=== PATIENT | male | born 1965 | race Caucasian/White ===

== ENCOUNTER 2023-05-30 11:56 | Outpatient (AMB) | payer OTHER, SELFPAY ==
--- NOTE | 2023-05-30 12:00 | HO.NEPHOV ---
HPI HPI Comments History of Present Illness Details I had the privilege of seeing Austin in consultation for his CKD and hypertension . He has been on ACEI for his hypertension. He takes NSAID's as on a needed basis. He gets occasional gout. He is a diabetic over 10 years. His serum creatinine went up to 1.5 but has settled to 1.4. He is not known to have proteinuria. He had Ultrasound of the kidneys showed B/L hydronephrosis suggestive of bladder outlet obstruction. He is not known to have renal calculus. He is known to be diabetic neuropathy but denies retinopathy. He has no H/O CAD, CVA, CHF, MALLORY or PAD. He has no new bone pain, epistaxis, photosensitivity, skin rashes, hemoptysis, hematemesis, melena. He had been taking lisinopril for his blood pressure for a long time. He occasionally gets flank pain and intermittent incontinence. [facility] Medical History (Updated 05/30/23 @ 12:59 by Juan Flores MD) Steatosis of liver Hypercholesteremia Retention of urine Multiple renal cysts Benign prostatic hyperplasia Adenomatous polyp of colon Snoring Bilateral tinnitus Chronic kidney disease, stage 3a Polyarthropathy Type 2 diabetes mellitus Essential (primary) hypertension Obesity History of gout Hemorrhoids Surgical History History of orthopedic surgery Family History Father Abdominal aortic aneurysm Mother Malignant neoplastic disease Heart disease Disorder of thyroid gland Social History (Updated 05/30/23 @ 12:05 by Rosalind Aviles MA) Alcohol intake: current Comment: Occasionally Patient Tobacco Use Status: Former Tobacco user Vital Signs 05/30/23 12:01 Height 6 ft 2 in Weight 268 lb BMI 34.4 BP 140/100 H Blood Pressure Location Lt brachial Position Sitting Pulse 67 Pulse Source Pulse Oximeter Pulse Oximetry (%) 99 Oxygen Delivery Method Room Air Physical Exam Vital Signs: Last Vital Signs Pulse 67 05/30/23 12:01 BP 140/100 H 05/30/23 12:01 Pulse Ox 99 05/30/23 12:01 Oxygen Delivery Method Room Air 05/30/23 12:01 BMI result Body Mass Index 34.4 Const General: comfortable and no acute distress Orientation/consciousness: patient oriented x3 HEENT Head: Yes normocephalic Mouth: Normal oral and palatal mucosa present Eyes EOM: EOMs intact bilaterally Neck Neck: Yes supple Resp Auscultation: clear to auscultation bilaterally Cardio Jugular venous distension: no JVD Rate: regular rate GI Palpation (GI): Soft to palpation Auscultation: normal bowel sounds General: Yes no CVA tenderness Back/Spine/Pelvis Back: no CVA tenderness Skin General skin exam: no rashes or lesions noted Neuro General: patient oriented x3 and moves all extremities Extrem General: Yes no pedal edema Assessment & Plan Assessment & Plan (1) CKD (chronic kidney disease) stage 3, GFR 30-59 ml/min: Code(s): N18.30 - Chronic kidney disease, stage 3 unspecified Qualifiers: Chronic kidney disease stage 3 subtype: stage 3a (GFR 45-59) Qualified Code(s): N18.31 - Chronic kidney disease, stage 3a (2) Essential (primary) hypertension: Code(s): I10 - Essential (primary) hypertension (3) Bladder outlet obstruction: Code(s): N32.0 - Bladder-neck obstruction Plan Robe likely has CKD from multifactorial etiology. He has long standing HTN along with DM without proteinuria. His recent renal USS showed bladder outlet obstruction with B/L hydronephrosis. He is going to see Dr Becker. He has been having over flow incontinence. I started him on Tamsulosin 0.4 mg daily. He likely will need Urodynamics and may need TURP. I have asked him to avoid NSAID's. He will benefit from Allopurinol, given recurrent gout attacks. I have ordered serum uric acid in addition to blood work for follow up. He will need a follow up renal USS after next visit in 2 months. If his serum creatinine rises, I shall back off on ACEI. All questions answered. Follow up given Orders: Orders Electrolytes Today I10 - Essential (primary) hypertension, N18.30 - Chronic kidney disease, stage 3 unspecified Blood Urea Nitrogen Today I10 - Essential (primary) hypertension, N18.30 - Chronic kidney disease, stage 3 unspecified Creatinine Today I10 - Essential (primary) hypertension, N18.30 - Chronic kidney disease, stage 3 unspecified Uric Acid Today I10 - Essential (primary) hypertension, N18.30 - Chronic kidney disease, stage 3 unspecified, N32.0 - Bladder-neck obstruction Medications: New tamsulosin 0.4 mg PO BEDTIME 30 days 30 caps 3RF Coding Level of Care Code New Pt Level 4 (46301) Diagnoses Stage 3a chronic kidney disease N18.31 Chronic kidney disease stage 3 subtype: stage 3a (GFR 45-59) Essential (primary) hypertension I10 Bladder outlet obstruction N32.0 Results Reviewed Nephrology Results: No Data to Display
[2023-05-30 12:01] VITALS: BP 140/100; PULSE 67; O2SAT 99; BMI 34.4
== END 2023-05-30 12:39 | disposition home or self-care (01) ==
PROVIDERS: PCP Pediatrics; Visit Provider Internal Medicine Nephrology
DX: N18.31 Chronic kidney disease, stage 3a (principal); I10 Essential (primary) hypertension; N32.0 Bladder-neck obstruction
CPT/HCPCS: 99204

== ENCOUNTER → 2023-05-30 11:56 | Outpatient (BNVA) | payer OTHER, SELFPAY | PROVIDERS: PCP Pediatrics; Visit Provider Internal Medicine Nephrology ==

== ENCOUNTER 2023-07-24 09:18 | Outpatient (REF) | payer OTHER, SELFPAY ==
[2023-07-24 11:14] LABS: Anion Gap 11 (12-20); Blood Urea Nitrogen 22 mg/dL (9-16); Carbon Dioxide 26 mmol/L (22-29); Chloride 110 mmol/L (96-108); Estimated Glomerular Filt Rate 49; Potassium 4.8 mmol/L (3.3-5.1); Sodium 142 mmol/L (135-145); Uric Acid 9.5 mg/dL (3.4-7.0)
== END 2023-07-24 09:19 | disposition home or self-care (01) ==
LOC: HO.10HDL 09:18
PROVIDERS: Visit Provider Internal Medicine Nephrology
DX: I12.9 Hypertensive chronic kidney disease with stage 1 through stage 4 chronic kidney disease, or unspecified chronic kidney disease (principal); N18.30 Chronic kidney disease, stage 3 unspecified; N32.0 Bladder-neck obstruction
CPT/HCPCS: 36415; 80051; 82565; 84520; 84550

== ENCOUNTER 2023-08-01 11:05 | Outpatient (AMB) | payer OTHER, SELFPAY ==
--- NOTE | 2023-08-01 11:43 | HO.NEPHOV ---
HPI HPI Comments History of Present Illness Details I had the privilege of seeing Austin in follow up for his CKD and hypertension . He has been on ACEI for his hypertension. He takes NSAID's as on a needed basis. He gets occasional gout. He is a diabetic over 10 years. His serum creatinine went up to 1.5 but has settled to 1.4. He is not known to have proteinuria. He had Ultrasound of the kidneys showed B/L hydronephrosis suggestive of bladder outlet obstruction and has seen Dr Becker. He is self catheterizing now. He is not known to have renal calculus. He is known to be diabetic neuropathy but denies retinopathy. He has no H/O CAD, CVA, CHF, MALLORY or PAD. He has no new bone pain, epistaxis, photosensitivity, skin rashes, hemoptysis, hematemesis, melena. He had been taking lisinopril for his blood pressure for a long time. He is having blood in the urine during catheterization. He does not have fever, supra pubic pain , chills or rigor. [facility] Medical History (Updated 05/30/23 @ 12:59 by Juan Flores MD) Steatosis of liver Hypercholesteremia Retention of urine Multiple renal cysts Benign prostatic hyperplasia Adenomatous polyp of colon Snoring Bilateral tinnitus Chronic kidney disease, stage 3a Polyarthropathy Type 2 diabetes mellitus Essential (primary) hypertension Obesity History of gout Hemorrhoids Surgical History History of orthopedic surgery Family History Father Abdominal aortic aneurysm Mother Malignant neoplastic disease Heart disease Disorder of thyroid gland Social History Alcohol intake: current Comment: Occasionally Patient Tobacco Use Status: Former Tobacco user Vital Signs 08/01/23 11:44 Height 6 ft 2 in Weight 265 lb BMI 34.0 BP 114/82 Blood Pressure Location Rt brachial Position Sitting Pulse 65 Pulse Source Pulse Oximeter Pulse Oximetry (%) 97 Oxygen Delivery Method Room Air Physical Exam Vital Signs: Last Vital Signs Pulse 65 08/01/23 11:44 BP 114/82 08/01/23 11:44 Pulse Ox 97 08/01/23 11:44 Oxygen Delivery Method Room Air 08/01/23 11:44 BMI result Body Mass Index 34.0 Const General: comfortable and no acute distress Orientation/consciousness: patient oriented x3 HEENT Head: Yes normocephalic Mouth: Normal oral and palatal mucosa present Eyes EOM: EOMs intact bilaterally Neck Neck: Yes supple Resp Auscultation: clear to auscultation bilaterally Cardio Jugular venous distension: no JVD Rate: regular rate GI Palpation (GI): Soft to palpation Auscultation: normal bowel sounds General: Yes no CVA tenderness Back/Spine/Pelvis Back: no CVA tenderness Skin General skin exam: no rashes or lesions noted Neuro General: patient oriented x3 and moves all extremities Extrem General: Yes no pedal edema Assessment & Plan Assessment & Plan (1) CKD (chronic kidney disease) stage 3, GFR 30-59 ml/min: Code(s): N18.30 - Chronic kidney disease, stage 3 unspecified Qualifiers: Chronic kidney disease stage 3 subtype: stage 3a (GFR 45-59) Qualified Code(s): N18.31 - Chronic kidney disease, stage 3a (2) Essential (primary) hypertension: Code(s): I10 - Essential (primary) hypertension (3) Bladder outlet obstruction: Code(s): N32.0 - Bladder-neck obstruction Plan [place]law likely has CKD from multifactorial etiology. He has long standing HTN along with DM without proteinuria. His recent renal USS showed bladder outlet obstruction with B/L hydronephrosis and is self catheterizing now. He is seeing Dr Becker. He will likely need TURP VINAY. I have asked him to avoid NSAID's. He will benefit from Allopurinol, given recurrent gout attacks. He will need a follow up renal USS after next visit . He is going to repeat blood work as well. If his serum creatinine rises, I shall back off on ACEI. All questions answered. Follow up given Orders: Orders Creatinine Today I10 - Essential (primary) hypertension, N18.30 - Chronic kidney disease, stage 3 unspecified, N32.0 - Bladder-neck obstruction Blood Urea Nitrogen Today I10 - Essential (primary) hypertension, N18.30 - Chronic kidney disease, stage 3 unspecified, N32.0 - Bladder-neck obstruction Electrolytes Today I10 - Essential (primary) hypertension, N18.30 - Chronic kidney disease, stage 3 unspecified, N32.0 - Bladder-neck obstruction Coding Level of Care Code Est Pt Level 4 (37113) Diagnoses Stage 3a chronic kidney disease N18.31 Chronic kidney disease stage 3 subtype: stage 3a (GFR 45-59) Essential (primary) hypertension I10 Bladder outlet obstruction N32.0 Results Reviewed Nephrology Results: Sodium 142 mmol/L (135-145) 07/24/23 Potassium 4.8 mmol/L (3.3-5.1) 07/24/23 Chloride 110 mmol/L (96-108) H 07/24/23 Carbon Dioxide 26 mmol/L (22-29) 07/24/23 BUN 22 mg/dL (9-16) H 07/24/23 Creatinine 1.49 mg/dL (0.5-1.4) H 07/24/23
[2023-08-01 11:44] VITALS: BP 114/82; PULSE 65; O2SAT 97; BMI 34.0
== END 2023-08-01 12:07 | disposition home or self-care (01) ==
PROVIDERS: PCP Pediatrics; Visit Provider Internal Medicine Nephrology
DX: N18.31 Chronic kidney disease, stage 3a (principal); I10 Essential (primary) hypertension; N32.0 Bladder-neck obstruction
CPT/HCPCS: 99214

== ENCOUNTER → 2023-08-01 11:05 | Outpatient (BNVA) | payer OTHER, SELFPAY | PROVIDERS: PCP Pediatrics; Visit Provider Internal Medicine Nephrology ==

== ENCOUNTER 2024-03-28 08:05 | Outpatient (REF) | payer OTHER, SELFPAY ==
[2024-03-28 11:00] LABS: Anion Gap 9 (12-20); Blood Urea Nitrogen 22 mg/dL (9-16); Carbon Dioxide 25 mmol/L (22-29); Chloride 105 mmol/L (96-108); Estimated Glomerular Filt Rate > 60; Potassium 4.3 mmol/L (3.3-5.1); Sodium 135 mmol/L (135-145)
== END 2024-03-28 08:06 | disposition home or self-care (01) ==
LOC: HO.10HDL 08:05
PROVIDERS: Visit Provider Internal Medicine Nephrology
DX: I12.9 Hypertensive chronic kidney disease with stage 1 through stage 4 chronic kidney disease, or unspecified chronic kidney disease (principal); N18.30 Chronic kidney disease, stage 3 unspecified; N32.0 Bladder-neck obstruction
CPT/HCPCS: 36415; 80051; 82565; 84520

== ENCOUNTER 2024-04-02 09:55 | Outpatient (AMB) | payer OTHER, SELFPAY ==
--- NOTE | 2024-04-02 10:08 | HO.NEPHOV_ITS ---
Vital Signs 04/02/24 10:09 Height 6 ft 2 in Weight 268 lb 8 oz BMI 34.5 BP 122/80 Blood Pressure Location Lt brachial Position Sitting Pulse 68 Pulse Source Pulse Oximeter Pulse Oximetry (%) 97 Oxygen Delivery Method Room Air Intake Visit Reasons: 6 mon follow up-Conf Funeral Pre Arrangement Specialist Required: No Accompanied by: Self / Same As Patient Allergies hydrochlorothiazide Allergy (Mild, Verified 04/02/24 10:09) Diarrhea HPI Comments Details: Austin was seen in follow up for his CKD and hypertension . He has been on ACEI for his hypertension. He takes NSAID's as on a needed basis. He has gout and has been started on Allopurinol. He is a diabetic over 10 years. His serum creatinine went up to 1.5 but has settled to 1.2. He is not known to have proteinuria. He is not known to have renal calculus. He is known to be diabetic neuropathy but denies retinopathy. He has no H/O CAD, CVA, CHF, MALLORY or PAD. He has no new bone pain, epistaxis, photosensitivity, skin rashes, hemoptysis, hematemesis, melena. He had been taking lisinopril for his blood pressure for a long time. He had TURP and his bladder outlet has gone. [facility] Medical History (Updated 05/30/23 @ 12:59 by Juan Flores MD) Steatosis of liver Hypercholesteremia Retention of urine Multiple renal cysts Benign prostatic hyperplasia Adenomatous polyp of colon Snoring Bilateral tinnitus Chronic kidney disease, stage 3a Polyarthropathy Type 2 diabetes mellitus Essential (primary) hypertension Obesity History of gout Hemorrhoids Surgical History History of orthopedic surgery Family History Father Abdominal aortic aneurysm Mother Malignant neoplastic disease Heart disease Disorder of thyroid gland Social History Alcohol intake: current Comment: Occasionally Patient Tobacco Use Status: Former Tobacco user Physical Exam Vital Signs: Last Vital Signs Pulse 68 04/02/24 10:09 BP 122/80 04/02/24 10:09 Pulse Ox 97 04/02/24 10:09 Oxygen Delivery Method Room Air 04/02/24 10:09 BMI result Body Mass Index 34.5 Const General: comfortable and no acute distress Orientation/consciousness: patient oriented x3 HEENT Head: Yes normocephalic Mouth: Normal oral and palatal mucosa present Eyes EOM: EOMs intact bilaterally Neck Neck: Yes supple Resp Auscultation: clear to auscultation bilaterally Cardio Jugular venous distension: no JVD Rate: regular rate GI Palpation (GI): Soft to palpation Auscultation: normal bowel sounds General: Yes no CVA tenderness Back/Spine/Pelvis Back: no CVA tenderness Skin General skin exam: no rashes or lesions noted Neuro General: patient oriented x3 and moves all extremities Extrem General: Yes no pedal edema Results Reviewed Nephrology Results: Sodium 135 mmol/L (135-145) 03/28/24 Potassium 4.3 mmol/L (3.3-5.1) 03/28/24 Chloride 105 mmol/L (96-108) 03/28/24 Carbon Dioxide 25 mmol/L (22-29) 03/28/24 BUN 22 mg/dL (9-16) H 03/28/24 Creatinine 1.23 mg/dL (0.5-1.4) 03/28/24 Assessment & Plan Assessment & Plan (1) CKD (chronic kidney disease) stage 3, GFR 30-59 ml/min: Code(s): N18.30 - Chronic kidney disease, stage 3 unspecified Category: Medical Qualifiers: Chronic kidney disease stage 3 subtype: stage 3a (GFR 45-59) Qualified Code(s): N18.31 - Chronic kidney disease, stage 3a (2) Essential (primary) hypertension: Code(s): I10 - Essential (primary) hypertension Category: Medical (3) Bladder outlet obstruction: Code(s): N32.0 - Bladder-neck obstruction Category: Medical Plan Robe likely has CKD from multifactorial etiology. He has long standing HTN along with DM without proteinuria. He had TURP. I have asked him to avoid NSAID's. He is on Allopurinol, given recurrent gout attacks. I ordered F/U renal USS . If his serum creatinine rises, I shall back off on ACEI. All questions answered. Follow up given Orders: Orders Blood Urea Nitrogen 6 Months I10 - Essential (primary) hypertension, N18.31 - Chronic kidney disease, stage 3a Protein Creatinine Ratio, Ur 6 Months I10 - Essential (primary) hypertension, N18.31 - Chronic kidney disease, stage 3a US renal BI 2 Weeks I10 - Essential (primary) hypertension, N18.31 - Chronic kidney disease, stage 3a, N32.0 - Bladder-neck obstruction Creatinine 6 Months I10 - Essential (primary) hypertension, N18.31 - Chronic kidney disease, stage 3a Electrolytes 6 Months I10 - Essential (primary) hypertension, N18.31 - Chronic kidney disease, stage 3a Coding Level of Care Code Est Pt Level 4 (90727) Diagnoses Stage 3a chronic kidney disease N18.31 Chronic kidney disease stage 3 subtype: stage 3a (GFR 45-59) Essential (primary) hypertension I10 Bladder outlet obstruction N32.0
[2024-04-02 10:09] VITALS: BP 122/80; PULSE 68; O2SAT 97; BMI 34.5
== END 2024-04-02 10:35 | disposition home or self-care (01) ==
PROVIDERS: PCP Pediatrics; Visit Provider Internal Medicine Nephrology
DX: I12.9 Hypertensive chronic kidney disease with stage 1 through stage 4 chronic kidney disease, or unspecified chronic kidney disease (principal); N18.31 Chronic kidney disease, stage 3a; N32.0 Bladder-neck obstruction
CPT/HCPCS: 99214

== ENCOUNTER 2024-11-26 09:49 | Outpatient (AMB) | payer OTHER, SELFPAY ==
--- NOTE | 2024-11-26 09:53 | HO.NEPHOV ---
Vital Signs 11/26/24 09:55 Height 6 ft 2 in Weight 265 lb 6 oz BMI 34.1 BP 134/88 Blood Pressure Location Lt brachial Position Sitting Intake Visit Reasons: Bladder outlet obstruction-Conf Online Project Manager Required: No Accompanied by: Self / Same As Patient Allergies hydrochlorothiazide Allergy (Mild, Verified 11/26/24 09:54) Diarrhea HPI Comments Details: Austin was seen in follow up for his CKD and hypertension . He has been on ACEI for his hypertension. He takes NSAID's as on a needed basis. He has gout and is doing well since he has been started on Allopurinol. He is a diabetic over 10 years. His serum creatinine went up to 1.5 but has settled to 1.13. He is not known to have proteinuria. He is not known to have renal calculus. He is known to be diabetic neuropathy but denies retinopathy. He has no H/O CAD, CVA, CHF, MALLORY or PAD. He has no new bone pain, epistaxis, photosensitivity, skin rashes, hemoptysis, hematemesis, melena. He had TURP and his bladder outlet has gone PFS Medical History (Updated 05/30/23 @ 12:59 by Juan Flores MD) Steatosis of liver Hypercholesteremia Retention of urine Multiple renal cysts Benign prostatic hyperplasia Adenomatous polyp of colon Snoring Bilateral tinnitus Chronic kidney disease, stage 3a Polyarthropathy Type 2 diabetes mellitus Essential (primary) hypertension Obesity History of gout Hemorrhoids Surgical History History of orthopedic surgery Family History Father Abdominal aortic aneurysm Mother Malignant neoplastic disease Heart disease Disorder of thyroid gland Social History Alcohol intake: current Comment: Occasionally Patient Tobacco Use Status: Former Tobacco user Review of Systems Const All systems reviewed & are unremarkable except as noted in HPI and below Physical Exam Const General: comfortable and no acute distress Orientation/consciousness: patient oriented x3 HEENT Head: Yes normocephalic Mouth: Normal oral and palatal mucosa present Eyes EOM: EOMs intact bilaterally Neck Neck: Yes supple Resp Auscultation: clear to auscultation bilaterally Cardio Jugular venous distension: no JVD Rate: regular rate GI Palpation (GI): Soft to palpation Auscultation: normal bowel sounds General: Yes no CVA tenderness Back/Spine/Pelvis Back: no CVA tenderness Skin General skin exam: no rashes or lesions noted Neuro General: patient oriented x3 and moves all extremities Extrem General: Yes no pedal edema Assessment & Plan Assessment & Plan (1) CKD (chronic kidney disease) stage 3, GFR 30-59 ml/min: Code(s): N18.30 - Chronic kidney disease, stage 3 unspecified Category: Medical Qualifiers: Chronic kidney disease stage 3 subtype: stage 3a (GFR 45-59) Qualified Code(s): N18.31 - Chronic kidney disease, stage 3a (2) Essential (primary) hypertension: Code(s): I10 - Essential (primary) hypertension Category: Medical Plan Robe likely has CKD from multifactorial etiology ( mostly from obstructive uropathy). He has long standing HTN along with DM without proteinuria. He had TURP. I have asked him to avoid NSAID's. He is on Allopurinol, given recurrent gout attacks. His F/U renal USS was reviewed . He is a great candidate for SGLT2 i. I shall add NaHCO3 if his HCO3 drifts down. All questions answered. Follow up given Orders: Orders Protein Creatinine Ratio, Ur 8 Months I10 - Essential (primary) hypertension, N18.31 - Chronic kidney disease, stage 3a Electrolytes 8 Months I10 - Essential (primary) hypertension, N18.31 - Chronic kidney disease, stage 3a Blood Urea Nitrogen 8 Months I10 - Essential (primary) hypertension, N18.31 - Chronic kidney disease, stage 3a Creatinine 8 Months I10 - Essential (primary) hypertension, N18.31 - Chronic kidney disease, stage 3a Uric Acid 8 Months I10 - Essential (primary) hypertension, N18.31 - Chronic kidney disease, stage 3a Coding Level of Care Code Est Pt Level 4 (43438) Diagnoses Stage 3a chronic kidney disease N18.31 Chronic kidney disease stage 3 subtype: stage 3a (GFR 45-59) Essential (primary) hypertension I10
[2024-11-26 09:55] VITALS: BP 134/88; BMI 34.1
--- OUTSIDE RECORDS SUMMARY | 2024-11-26 10:24 | XMS_ITS | Data Portability ---
Author Organization [facility], Main Office Address [address] [facility] [address] [place] [id number] Care Team Providers Care Financial Services Sales Representative Name Role Phone MARIO OBANDO Primary Care Provider [facility] Urologist GREGORY HAILE Robotics Mechanic [phone] SWEETIE MENDOZA Experimental Worker MARK SEWELL Preservative Filler Machine Operator ESTHER ROSARIO Capsule Filling Machine Operator LIZABETH WALTERS Personal Computer Network Analyst JACEK GIFFORD Wage And Salary Specialist SUSANA LAZO Mold Presser Assessment No assessment recorded. Plan of Treatment Reminders Order Date Submit Date Provider Last Modified By Organization Details Last Modified Time Details Appointments Follow Up DM 30 2024 10:00A M Yesenia Diggs PA-C Not available Not available Not available PE EST 2024 10:15A M Mario Obando MD Not available Not available Not available Lab uric acid, serum or plasma 2024 025 SHANA [facility] (Centralized Electronic Ordering - All Locations), Patient Can Go To The Location Of Their Choice, [id number] 11/22/2024 08:07:10 hemogl obin A1C, finger stick 2024 025 [email or web address] In-Office Order, Internal Use Only DO Not Attach Compendium DO Not Attach Compendium, Do Not Delete/merge, [id number] 06/18/2024 14:02:32 BMP, serum or plasma 2024 SHANA [facility] (Centralized Electronic Ordering - All Locations), Patient Can Go To The Location Of Their Choice, 08/14/2024 22:05:51 lipid panel, serum 2024 SHANA [facility] (Centralized Electronic Ordering - All Locations), Patient Can Go To The Location Of Their Choice, 06/18/2024 14:19:31 uric acid, serum or plasma - Screen ing 2023 SHANA [facility] (Centralized Electronic Ordering - All Locations), Patient Can Go To The Location Of Their Choice, 08/16/2024 06:13:37 lipid panel, serum - Screen ing 2023 SHANA [facility], [address], [place], [address], 08/16/2024 06:13:36 urinal ysis, comple te - Screen ing 2023 SHANA [facility] (Centralized Electronic Ordering - All Locations), Patient Can Go To The Location Of Their Choice, 08/16/2024 06:13:36 PTH (parat hyroid hormon e), intact , serum or plasma - Screen ing 2023 SHANA [facility] (Centralized Electronic Ordering - All Locations), Patient Can Go To The Location Of Their Choice, 08/16/2024 06:13:37 CBC w/ auto diff - Screen ing 2023 SHANA [facility], [address], [address], [place], [address], 08/16/2024 06:13:35 PSA, serum or plasma - Screen ing 2023 024 SHANA [facility], [address], [address], [place], [address], 08/16/2024 06:13:[address] referr al 2023 024 [facility], [address] [place], [address], 05/28/2024 12:03:49 cardio logist referr al - for SVT follow up 2023 024 flo Walters MD, [address] [facility], [place], [address], 08/20/2024 09:46:13 nutrit ionist /dieti joan referr al 2023 024 [email or web address] Not available 02/21/2024 13:01:51 Procedures None record ed. Surgeries None record ed. Imaging XR, knee, 3 view - assess arthri tic burden 2024 025 [email or web address] [facility], [address] [place], [address], 08/25/2024 11:33:43 XR, foot 2023 024 [email or web address], [address] [place], [address], 05/06/2024 09:28:19 Medication Orders allopu rinol 100 mg tablet 2024 025 [facility], [address] [place], [address], 08/23/2024 14:38:23 predni sone 20 mg tablet 2024 025 [facility], [address] [place], [address], 08/31/2024 05:01:55 amlodi pine 10 mg tablet 2024 025 ed [facility] [place], [place], [address] [facility], [place], [address], 08/19/2024 09:32:57 Mounja ro 5 mg/0.5 mL subcut aneous pen inject or 2024 025 [facility], [address] [place] [address], [address], 06/19/2024 12:08:27 predni sone 20 mg tablet 2023 025 [facility] [place], [place], [address] [place], [address], 08/31/2024 05:01:55 allopu rinol 100 mg tablet 2023 024 [facility] 3, [address] [place], [address], 02/21/2024 09:32:04 atorva statin 40 mg tablet 2023 024 [facility] 3, [address] [place] [address], [address], 02/21/2024 09:32:15 Patient TargetsNo targets recorded. Patient Instructions Encounter Date Encounter Id Patient Instructions Last Modified By Organization Details Last Modified Time 02/21/2024 [id number] gout: care instructions ed Not available 02/21/2024 09:14:40 supraventricular tachycardia: care instructions awychowski Not available 02/21/2024 09:14:39 Prostate Cancer Screening awychowski Not available 02/21/2024 09:14:39 starting a weigh t loss plan: care instructions [email or web address] Not available 02/21/2024 09:14:39 Nutrition Referr al and Weight Management Follow-up Information awychowski Not available 02/21/2024 09:14:39 04/21/2024 [id number] purine-restricte d diet: care instructions pmadden Not available 04/21/2024 10:57:32 check fasting la bs next week as dir by PCP at recent PE pmadden Not available 04/21/2024 11:11:56 Medications (OTC , herbal therapies, supplements) reviewed and reconciled with patient and or caregiver, including potential side effects, drug interactions, instructions, and the consequences of not taking medication. Reviewed potential barriers to medication adherence, such as side effects from medication or cost of medication. pmadden Not available 04/21/2024 11:11:52 06/18/2024 [id number] body mass index: care instructions Not available 06/18/2024 14:02:30 learning about healthy weight Not available 06/18/2024 14:02:30 08/19/2024 [id number] gout: care instructions awychowski Not available 08/19/2024 09:44:57 Reason for Referral Documentation Writer/dietitian Refer ral for Body mass index 30+ - obesity Referring Physician: Mario Obando, Family Medicine, Encounter Date: 02/21/2024 Personal Computer Network Analyst Referral for Cha praventricular tachycardia for SVT follow up Referring Physician: Mario Obando Family Medicine, Encounter Date: 02/21/2024 Mold Presser Referral for Gout Referring Physician: Ruddy Diggs, Internal Medicine, Encounter Date: 04/21/2024 Results Created Date Observation Date Name Description Value Unit Range Abnormal Flag Note LastModifiedBy Organization Detail LastModifiedTime 02/18/20 24 02/19/2024 COMP. METAB OLIC PANEL (14) glucose 144 mg/dL 70-99 above high normal Not Available [facility] ([facility]) [address] [place], [address], 02/20/2024 14:07:40 02/18/2002/19/2024 COMP. METAB OLIC PANEL (14) BUN 25 mg/dL 6-24 above high normal Not Available [facility] ([facility]) [address] [place], [address], 02/20/2024 14:07:40 02/18/2002/19/2024 COMP. METAB OLIC PANEL (14) creatinine 1.35 mg/dL 0.76-1 .27 above high normal Not Available [facility] ([facility]) [address] [place], [address], 02/20/2024 14:07:40 02/18/20 24 02/19/2024 COMP. METAB OLIC PANEL (14) eGFR 61 mL/mi n/1.7 3 >59 normal Not Available [facility] ([facility]) [address] [facility], [place], [address], 02/20/2024 14:07:40 02/18/20 24 02/19/2024 COMP. METAB OLIC PANEL (14) BUN/creatini ne ratio 19 9-20 normal Not Available [facility] ([facility]) [address] [facility], [place], [address], 02/20/2024 14:07:40 02/18/20 24 02/19/2024 COMP. METAB OLIC PANEL (14) sodium 140 mmol/ L 134-14 4 normal Not Available [facility] ([facility]) [address] [facility], [place], [address], 02/20/2024 14:07:40 02/18/20 24 02/19/2024 COMP. METAB OLIC PANEL (14) potassium 5.3 mmol/ L 3.5-5. 2 above high normal Not Available [facility] ([facility]) [address] [facility], [place], [address], 02/20/2024 14:07:40 02/18/20 24 02/19/2024 COMP. METAB OLIC PANEL (14) chloride 105 mmol/ L 96-106 normal Not Available [facility] ([facility]) [address] [facility], [place], [address], 02/20/2024 14:07:40 02/18/20 24 02/19/2024 COMP. METAB OLIC PANEL (14) carbon dioxide, total 21 mmol/ L 20-29 normal Not Available [facility] ([facility]) [address] [facility], [place], [address], 02/20/2024 14:07:40 02/18/20 24 02/19/2024 COMP. METAB OLIC PANEL (14) calcium 9.4 mg/dL 8.7-10 .2 normal Not Available [facility] ([facility]) [address] [facility] [place], [address], 02/20/2024 14:07:40 02/18/20 24 02/19/2024 COMP. METAB OLIC PANEL (14) protein, total 6.8 g/dL 6.0-8. 5 normal Not Available [facility] ([facility]) [address] [facility] [place], [address], 02/20/2024 14:07:40 02/18/20 24 02/19/2024 COMP. METAB OLIC PANEL (14) albumin 4.2 g/dL 3.8-4. 9 normal Not Available [facility] ([facility]) [address] [facility] [place], [address], 02/20/2024 14:07:40 02/18/20 24 02/19/2024 COMP. METAB OLIC PANEL (14) globulin, total 2.6 g/dL 1.5-4. 5 Not Available [facility] ([facility]) [address] [facility] [place], [address], 02/20/2024 14:07:40 02/18/20 24 02/19/2024 COMP. METAB OLIC PANEL (14) bilirubin, total 0.6 mg/dL 0.0-1. 2 normal Not Available [facility] ([facility]) [address] [facility] [place], [address], 02/20/2024 14:07:40 02/18/20 24 02/19/2024 COMP. METAB OLIC PANEL (14) alkaline phosphatase 83 IU/L 44-121 normal Not Available [facility] [address] [facility] [place], [address], 02/20/2024 14:07:40 02/18/20 24 02/19/2024 COMP. METAB OLIC PANEL (14) AST (SGOT) 23 IU/L 0-40 normal Not Available [facility] ([facility]) [address] [place], [address], 02/20/2024 14:07:40 02/18/20 24 02/19/2024 COMP. METAB OLIC PANEL (14) ALT (SGPT) 24 IU/L 0-44 normal Not Available [facility] ([facility]) [address] [place], [address], 02/20/2024 14:07:40 02/18/20 24 02/20/2024 COMP. METAB OLIC PANEL (14) hemoglobin A1C 6.5 % 4.8-5. 6 above high normal Predi abete s: 5.7 - 6.4 Diabe rudy: >6.4 Glyce rajesh contr ol for adult s with diabe rudy: <7.0 Not Available [facility] ([facility]) [address] [place], [address], 02/20/2024 14:07:40 02/18/20 24 02/19/2024 URIC ACID uric acid 9.0 mg/dL 3.8-8. 4 above high normal Thera aydeni brenden lewis t for gout patie nts: <6.0 Not Available [facility] ([facility]) [address] [place], [address], 02/20/2024 14:07:41 06/18/1906/18/2024 hemog lobin A1C, finge rstic k A1C 7.3 % 4-6 abnormal Not Available In-Office Order Internal Use Only DO Not Attach Compendium DO Not Attach Compendium, Do Not Delete/merge, [id number] 06/18/2024 13:14:28 08/15/19 25 08/14/2024 BASIC METAB OLIC PANEL (8) glucose 161 mg/dL 70-99 above high normal Not Available [facility] ([facility]) [address] [place], [address], 08/14/2024 22:05:51 08/15/19 25 08/14/2024 BASIC METAB OLIC PANEL (8) BUN 19 mg/dL 6-24 normal Not Available [facility] ([facility]) [address] [place], [address], 08/14/2024 22:05:51 08/15/19 25 08/14/2024 BASIC METAB OLIC PANEL (8) creatinine 1.15 mg/dL 0.76-1 .27 normal Not Available [facility] ([facility]) [address] [place], [address], 08/14/2024 22:05:51 08/15/19 25 08/14/2024 BASIC METAB OLIC PANEL (8) eGFR 74 mL/mi n/1.7 3 >59 normal Not Available [facility] ([facility]) [address] [place], [address], 08/14/2024 22:05:51 08/15/19 25 08/14/2024 BASIC METAB OLIC PANEL (8) BUN/creatini ne ratio 17 9-20 normal Not Available [facility] ([facility]) [address] [place], [address], 08/14/2024 22:05:51 08/15/19 25 08/14/2024 BASIC METAB OLIC PANEL (8) sodium 139 mmol/ L 134-14 4 normal Not Available [facility] ([facility]) [address] [place], [address], 08/14/2024 22:05:51 08/15/19 25 08/14/2024 BASIC METAB OLIC PANEL (8) potassium 4.5 mmol/ L 3.5-5. 2 normal Not Available [facility] ([facility]) [address] [place], [address], 08/14/2024 22:05:51 08/15/19 25 08/14/2024 BASIC METAB OLIC PANEL (8) chloride 106 mmol/ L 96-106 normal Not Available [facility] ([facility]) [address] [place], [address], 08/14/2024 22:05:51 08/15/19 25 08/14/2024 BASIC METAB OLIC PANEL (8) carbon dioxide, total 19 mmol/ L 20-29 below low normal Not Available [facility] ([facility]) [address] [place], [address], 08/14/2024 22:05:51 08/15/19 25 08/14/2024 BASIC METAB OLIC PANEL (8) calcium 9.4 mg/dL 8.7-10 .2 normal Not Available [facility] ([facility]) [address] [place], [address], 08/14/2024 22:05:51 08/15/19 25 08/14/2024 CBC WITH DIFFE RENTI AL/PL ATELE T WBC 4.3 x10e3 /uL 3.4-10 .8 normal Not Available [facility] ([facility]) [address] [place], [address], 08/16/2024 06:13:35 08/15/19 25 08/14/2024 CBC WITH DIFFE RENTI AL/PL ATELE T RBC 5.21 x10e6 /uL 4.14-5 .80 normal Not Available [facility] ([facility]) [address] [place], [address], 08/16/2024 06:13:35 08/15/19 25 08/14/2024 CBC WITH DIFFE RENTI AL/PL ATELE T hemoglobin 15.8 g/dL 13.0-1 7.7 normal Not Available [facility] ([facility]) [address] [place], [address], 08/16/2024 06:13:35 08/15/19 25 08/14/2024 CBC WITH DIFFE RENTI AL/PL ATELE T hematocrit 48.1 % 37.5-5 1.0 normal Not Available [facility] ([facility]) [address] [place], [address], 08/16/2024 06:13:35 08/15/19 25 08/14/2024 CBC WITH DIFFE RENTI AL/PL ATELE T MCV 92 fL 79-97 normal Not Available [facility] ([facility]) [address] [facility], [place], [address], 08/16/2024 06:13:35 08/15/19 25 08/14/2024 CBC WITH DIFFE RENTI AL/PL ATELE T MCH 30.3 pg 26.6-3 3.0 normal Not Available [facility] ([facility]) [address] [facility], [place], [address], 08/16/2024 06:13:35 08/15/19 25 08/14/2024 CBC WITH DIFFE RENTI AL/PL ATELE T MCHC 32.8 g/dL 31.5-3 5.7 normal Not Available [facility] ([facility]) [address] [place], [address], 08/16/2024 06:13:35 08/15/19 25 08/14/2024 CBC WITH DIFFE RENTI AL/PL ATELE T RDW 12.4 % 11.6-1 5.4 Not Available [facility] ([facility]) [address] [place], [address], 08/16/2024 06:13:35 08/15/19 25 08/14/2024 CBC WITH DIFFE RENTI AL/PL ATELE T platelets 214 x10e3 /uL 150-45 0 normal Not Available [facility] ([facility]) [address] [place], [address], 08/16/2024 06:13:35 08/15/19 25 08/14/2024 CBC WITH DIFFE RENTI AL/PL ATELE T neutrophils 52 % not estab. normal Not Available [facility] ([facility]) [address] [facility], [place], [address], 08/16/2024 06:13:35 08/15/19 25 08/14/2024 CBC WITH DIFFE RENTI AL/PL ATELE T lymphs 34 % not estab. normal Not Available [facility] ([facility]) [address] [facility], [place], [address], 08/16/2024 06:13:35 08/15/19 25 08/14/2024 CBC WITH DIFFE RENTI AL/PL ATELE T monocytes 9 % not estab. normal Not Available [facility] ([facility]) [address] [facility], [place], [address], 08/16/2024 06:13:35 08/15/19 25 08/14/2024 CBC WITH DIFFE RENTI AL/PL ATELE T eos 4 % not estab. normal Not Available [facility] ([facility]) [address] [facility], [place], [address], 08/16/2024 06:13:35 08/15/19 25 08/14/2024 CBC WITH DIFFE RENTI AL/PL ATELE T basos 1 % not estab. normal Not Available [facility] ([facility]) [address] [facility], [place], [address], 08/16/2024 06:13:35 08/15/19 25 08/14/2024 CBC WITH DIFFE RENTI AL/PL ATELE T immature cells BATH MIXER Not Available [facility] ([facility]) [address] [facility], [place], [address], 08/16/2024 06:13:35 08/15/19 25 08/14/2024 CBC WITH DIFFE RENTI AL/PL ATELE T neutrophils (absolute) 2.3 x10e3 /uL 1.4-7. 0 normal Not Available [facility] ([facility]) [address] [facility], [place], [address], 08/16/2024 06:13:35 08/15/19 25 08/14/2024 CBC WITH DIFFE RENTI AL/PL ATELE T lymphs (absolute) 1.5 x10e3 /uL 0.7-3. 1 normal Not Available [facility] ([facility]) [address] [facility], [place], [address], 08/16/2024 06:13:35 08/15/19 25 08/14/2024 CBC WITH DIFFE RENTI AL/PL ATELE T monocytes(ab solute) 0.4 x10e3 /uL 0.1-0. 9 normal Not Available [facility] ([facility]) [address] [place], [address], 08/16/2024 06:13:35 08/15/19 25 08/14/2024 CBC WITH DIFFE RENTI AL/PL ATELE T eos (absolute) 0.2 x10e3 /uL 0.0-0. 4 normal Not Available [facility] ([facility]) [address] [facility], [place], [address], 08/16/2024 06:13:35 08/15/19 25 08/14/2024 CBC WITH DIFFE RENTI AL/PL ATELE T baso (absolute) 0.1 x10e3 /uL 0.0-0. 2 normal Not Available [facility] ([facility]) [address] [facility], [place], [address], 08/16/2024 06:13:35 08/15/19 25 08/14/2024 CBC WITH DIFFE RENTI AL/PL ATELE T immature granulocytes 0 % not estab. Not Available [facility] ([facility]) [address] [place], [address], 08/16/2024 06:13:35 08/15/19 25 08/14/2024 CBC WITH DIFFE RENTI AL/PL ATELE T immature grans (abs) 0.0 x10e3 /uL 0.0-0. 1 Not Available [facility] ([facility]) [address], [place], [address], 08/16/2024 06:13:35 08/15/19 25 08/14/2024 CBC WITH DIFFE RENTI AL/PL ATELE T NRBC BATH MIXER Not Available [facility] ([facility]) [address], [place], [address], 08/16/2024 06:13:35 08/15/19 25 08/14/2024 CBC WITH DIFFE RENTI AL/PL ATELE T hematology comments: BATH MIXER Not Available [facility] ([facility]) [address] [facility], [place], [address], 08/16/2024 06:13:35 08/15/19 25 08/15/2024 URINA LYSIS , COMPL ETE specific gravity 1.023 1.005- 1.030 normal Not Available [facility] ([facility]) [address] [facility], [place], [address], 08/16/2024 06:13:36 08/15/19 25 08/15/2024 URINA LYSIS , COMPL ETE pH 5.5 5.0-7. 5 normal Not Available [facility] ([facility]) [address] [facility], [place], [address], 08/16/2024 06:13:36 08/15/19 25 08/15/2024 URINA LYSIS , COMPL ETE urine-color YELLOW yellow Not Available [facility] ([facility]) [address] [facility], [place], [address], 08/16/2024 06:13:36 08/15/19 25 08/15/2024 URINA LYSIS , COMPL ETE appearance CLEAR clear Not Available [facility] ([facility]) [address] [facility], [place], [address], 08/16/2024 06:13:36 08/15/19 25 08/15/2024 URINA LYSIS , COMPL ETE WBC esterase NEGATI VE negati ve Not Available [facility] ([facility]) [address] [place], [address], 08/16/2024 06:13:36 08/15/19 25 08/15/2024 URINA LYSIS , COMPL ETE protein NEGATI VE negati ve/tra ce Not Available [facility] ([facility]) [address] [place], [address], 08/16/2024 06:13:36 08/15/19 25 08/15/2024 URINA LYSIS , COMPL ETE glucose NEGATI VE negati ve Not Available [facility] ([facility]) [address] [place], [address], 08/16/2024 06:13:36 08/15/19 25 08/15/2024 URINA LYSIS , COMPL ETE ketones NEGATI VE negati ve Not Available [facility] ([facility]) [address] [place], [address], 08/16/2024 06:13:36 08/15/19 25 08/15/2024 URINA LYSIS , COMPL ETE occult blood NEGATI VE negati ve Not Available [facility] ([facility]) [address] [place], [address], 08/16/2024 06:13:36 08/15/19 25 08/15/2024 URINA LYSIS , COMPL ETE bilirubin NEGATI VE negati ve Not Available [facility] ([facility]) [address] [place], [address], 08/16/2024 06:13:36 08/15/19 25 08/15/2024 URINA LYSIS , COMPL ETE urobilinogen ,semi-qn 0.2 mg/dL 0.2-1. 0 normal Not Available [facility] ([facility]) [address] [place], [address], 08/16/2024 06:13:36 08/15/19 25 08/15/2024 URINA LYSIS , COMPL ETE nitrite, urine NEGATI VE negati ve Not Available [facility] ([facility]) [address] [facility], [place], [address], 08/16/2024 06:13:36 08/15/19 25 08/15/2024 URINA LYSIS , COMPL ETE microscopic examination COMMEN T Micro scopi c follo ws if indic ated. Not Available [facility] ([facility]) [address] [facility], [place], [address], 08/16/2024 06:13:36 08/15/19 25 08/15/2024 URINA LYSIS , COMPL ETE microscopic examination SEE BELOW: Micro scopi c was indic ated and was perfo rmed. Not Available [facility] ([facility]) [address] [facility], [place], [address], 08/16/2024 06:13:36 08/15/19 25 08/16/2024 URINA LYSIS , COMPL ETE WBC NONE SEEN /hpf 0 - 5 Not Available [facility] ([facility]) [address] [facility], [place], [address], 08/16/2024 06:13:36 08/15/19 25 08/16/2024 URINA LYSIS , COMPL ETE RBC NONE SEEN /hpf 0 - 2 Not Available [facility] ([facility]) [address] [place], [address], 08/16/2024 06:13:36 08/15/19 25 08/16/2024 URINA LYSIS , COMPL ETE epithelial cells (non renal) NONE SEEN /hpf 0 - 10 Not Available [facility] ([facility]) [address] [place], [address], 08/16/2024 06:13:36 08/15/19 25 08/16/2024 URINA LYSIS , COMPL ETE epithelial cells (renal) BATH MIXER Not Available [facility] ([facility]) [address] [facility], [place], [address], 08/16/2024 06:13:36 08/15/19 25 08/16/2024 URINA LYSIS , COMPL ETE casts NONE SEEN /lpf none seen Not Available [facility] ([facility]) [address] [facility], [place], [address], 08/16/2024 06:13:36 08/15/19 25 08/16/2024 URINA LYSIS , COMPL ETE cast type BATH MIXER Not Available [facility] ([facility]) [address] [facility], [place], [address], 08/16/2024 06:13:36 08/15/19 25 08/16/2024 URINA LYSIS , COMPL ETE crystals BATH MIXER Not Available [facility] ([facility]) [address] [place], [address], 08/16/2024 06:13:36 08/15/19 25 08/16/2024 URINA LYSIS , COMPL ETE crystal type BATH MIXER Not Available [facility] ([facility] [address] [facility], [place], [address], 08/16/2024 06:13:36 08/15/19 25 08/16/2024 URINA LYSIS , COMPL ETE mucus threads BATH MIXER Not Available [facility] ([facility]) [address] [place], [address], 08/16/2024 06:13:36 08/15/19 25 08/16/2024 URINA LYSIS , COMPL ETE bacteria NONE SEEN none seen/f ew Not Available [facility] ([facility]) [address] [facility], [place], [address], 08/16/2024 06:13:36 08/15/19 25 08/16/2024 URINA LYSIS , COMPL ETE yeast BATH MIXER Not Available [facility] ([facility]) [address] [place], [address], 08/16/2024 06:13:36 08/15/19 25 08/16/2024 URINA LYSIS , COMPL ETE trichomonas BATH MIXER Not Available [facility] ([facility] [address] [place], [address], 08/16/2024 06:13:36 08/15/19 25 08/16/2024 URINA LYSIS , COMPL ETE comment BATH MIXER Not Available [facility] ([facility]) [address] [place], [address], 08/16/2024 06:13:36 08/15/19 25 08/14/2024 LIPID PANEL cholesterol, total 92 mg/dL 100-19 9 below low normal Not Available [facility] ([facility]) [address] [place], [address], 08/16/2024 06:13:36 08/15/19 25 08/14/2024 LIPID PANEL triglyceride s 85 mg/dL 0-149 normal Not Available [facility] p ([facility]) [address] [place], [address], 08/16/2024 06:13:36 08/15/19 25 08/14/2024 LIPID PANEL HDL cholesterol 42 mg/dL >39 normal Not Available [facility] ([facility]) [address] [place], [address], 08/16/2024 06:13:36 08/15/19 25 08/14/2024 LIPID PANEL VLDL cholesterol alexis 17 mg/dL 5-40 Not Available [facility] ([facility]) [address] [place], [address], 08/16/2024 06:13:36 08/15/19 25 08/14/2024 LIPID PANEL LDL chol calc ([facility]) 33 mg/dL 0-99 Not Available [facility] ([facility]) [address] [facility], [place], [address], 08/16/2024 06:13:36 08/15/1908/14/2024 LIPID PANEL LDL calc comment: BATH MIXER Not Available [facility] ([facility]) [address] [facility], [place], [address], 08/16/2024 06:13:36 08/15/19 25 08/14/2024 PSA TOTAL (REFL EX TO FREE) prostate specific Ag 0.6 NG/mL 0.0-4. 0 normal Vin ECLIA metho dolog y. Accor ding to the Ameri can Urolo gical Assoc iatio n, Serum PSA shoul d decre ase and remai n at undet ectab le level s after radic al prost atect chung. The AUA defin es bioch emica l recur rence as an initi al PSA value 0.2 ng/mL or great er follo wed by a subse quent confi rmato ry PSA value 0.2 ng/mL or great er. Value s obtai mary with diffe rent assay metho ds or kits canno t be used inter alvarado eamariel . Resul ts canno t be inter prete d as absol [place] evide nce of the prese nce or absen ce of [place]ie [place] se. Not Available [facility] ([facility]) [address] [facility], [place], [address], 08/16/2024 06:13:36 08/15/1908/14/2024 PSA TOTAL (REFL EX TO FREE) reflex criteria COMMEN T The perce nt free PSA is perfo rmed on a refle x basis only when the total PSA is betwe en 4.0 and 10.0 ng/mL . Not Available [facility] ([facility]) [address] [facility], [place], [address], 08/16/2024 06:13:36 08/15/19 25 08/14/2024 URIC ACID uric acid 7.4 mg/dL 3.8-8. 4 normal Thera peuti c targe t for gout patie nts: <6.0 Not Available [facility] ([facility]) [address] [facility], [place], [address], 08/16/2024 06:13:37 08/15/19 25 08/15/2024 PTH, INTAC T PTH, intact 56 pg/mL 15-65 normal Not Available [facility] ([facility]) [address] [place], [address], 08/16/2024 06:13:37 11/22/19 25 11/22/2024 URIC ACID uric acid 5.6 mg/dL 3.8-8. 4 normal Thera peuti c targe t for gout patie nts: <6.0 Not Available [facility] ([facility]) [address] [facility], [place], [address], 11/22/2024 08:07:10 04/22/2004/21/2024 XR, foot, 3 or more view Foot Min 3 Views Right, 3 views Reason : pain in right foot COMPAR ANASTASIA: None. FINDIN GS: No fractu res or bone lesion s. Small planta r calcan eal and Achill es tendon spurs. Very mild joint space narrow ing and sclero sis of the first MTP joint. Normal soft tissue s. IMPRES DANNA: 1. No radiog raphic eviden ce of an acute osseou s abnorm ality. 2. Mild degene rative change s of the first MTP joint. WSN: [id number] Orderi ng Physic mio: Praveen Diggs Dictat ed By: Mark Watkins MD Dictat ed Date/T nahun: 12:10 p Review ed By: Mark Watkins MD Signed By: Mark Watkins MD Signed Date/T nahun: 12:10 pm Transc ribed By: MERRITT Transc ribed Date/T nahun: 12:08 pm [facility] [address] [place] [address], [address], 04/23/2024 10:21:33 Result Notes Documentation Provider Name and Address Organization Details Recorded Time Xr, Foot, 3 Or More View : Foot Min 3 Views Right, 3 views Reason: pain in right foot COMPARISON: None. FINDINGS: No fractures or bone lesions. Small plantar calcaneal and Achilles tendon spurs. Very mild joint space narrowing and sclerosis of the first MTP joint. Normal soft tissues. IMPRESSION: 1. No radiographic evidence of an acute osseous abnormality. 2. Mild degenerative changes of the first MTP joint. WSN: [id number] Ordering Physician: Ruddy Diggs Dictated By: Mark Watkins MD Dictated Date/Time: 04/22/24 12:10 p Reviewed By: Mark Watkins MD Signed By: Mark Watkins MD Signed Date/Time: 04/22/24 12:10 pm Transcribed By: MERRITT Transcribed Date/Time: 04/22/24 12:08 pm Patient Class: Outpatient Ruddy Diggs PA-C [address] [address], [place], [address], [facility] 04/22/2024 18:11:21 Problems Name Problem SNOMED Code Status Onset Date Resolution Date Notes Provider Name and Address Organization Details Recorded Time Candidia sis of urogenit al site 800487040 Completed 201212/22/2013 IMPRESSI ON: LOOKS TO BE RESOLVIN G AFTER SINGLE ORAL DOSE. WILL TRY COURSE OF TOPICAL THERAPY WELL.; RECORDED 03/20/20 13 12:45PM BY LYLY KEVIN MA, ANNOTATI ON/ALIX Obando MD [address] [facility] [address], [place], [address] , [facility] 6 07:08:40 Type 2 diabetes mellitus without complica tion 615749491 Completed 201212/22/2013 RECORDED 03/20/20 13 10:44AM BY LYLY KEVIN MA, ANNOTATI ON/ALIX Diggs PA-C [address] [facility] [address], [place], [address] , [facility] 3 14:32:46 Influenz a vaccine needed [id number] 06 Completed 201212/22/2013 RECORDED 04/23/20 13 12:09PM BY MARIO Jefferson MD, OFFICE VISIT Mario Obando MD [address] [facility] [address], [place], [address] , [facility] 6 07:08:40 Adult health examinat ion Completed 201212/22/2013 IMPRESSI ON: IMMUNIZA TION STATUS NOT CURRENT BUT PT DECLINES DESPITE UNDERSTA NDING POTENTIA L CONSEQUE NCES. WILL SCREEN BASED ON RISK FACTORS. REGULAR DENTAL CARE AND SEATBELT USE ADVISED. DISTRACT ED DRIVING DISCUSSE D.; RECORDED 04/23/20 13 11:46AM BY LYLY KEVIN MA, STUARTATI ON/ADDKRIS Obando MD [address] [address], [place], [address] , [facility] 6 07:08:40 Gout [id number] Completed 201212/22/2013 IMPRESSI ON: OFF OF MEDS WITHOUT RECENT FLARE. WILL SEE IF BASELINE URIC ACID LEVEL IS ELEVATED .; RECORDED 03/20/20 13 12:45PM BY LYLY KEVIN MA, CIARA ON/ALIX Diggs PA-C [address] [address], [place], [address] , [facility] 4 11:09:41 Leukopen ia [id number] Completed 201212/22/2013 IMPRESSI ON: WILL SEE IF THIS IS PERSISTA NT.; RECORDED 04/23/20 13 11:46AM BY LYLY KEVIN MA, CIARA ON/ALIX Obando MD [address] [address], [place], [address] , [facility] 6 07:08:40 Renewal of prescrip tion Completed 201312/22/2013 RECORDED 08/23/19 14 12:51PM BY LYLY KEVIN MA, CIARA ON/ALIX Obando MD [address] [address], [place], [address] , [facility] 6 07:08:40 Immuniza tion refused Completed 201212/22/2013 RECORDED 04/23/20 13 11:46AM BY LYLY KEVIN MA, CIARA ON/ALIX Obando MD [address] [facility] [address], [place], [address] , [facility] 6 07:08:40 Administ ration of diphther ia and tetanus vaccine Completed 201312/22/2013 RECORDED 08/23/19 14 12:51PM BY LYLY KEVNI MA, CIARA ON/ALIX Obando MD [address] [address], [place], [address] , [facility] 6 07:08:40 Increase d frequenc y of urinatio n [id number] Completed 201212/22/2013 IMPRESSI ON: SUSPECT DIABETES , SCREEN FOR INFECTIO N.; RECORDED 01/16/20 13 12:54PM BY LYLY KEVIN MA, CIARA ON/ALIX Obando MD [address] [address], [place], [address] , [facility] 6 07:08:40 Abnormal weight loss 080127610 Completed 201212/22/2013 IMPRESSI ON: CONSTELL ATION OF SYMPTOMS RAISES CONCERN FOR NEW ONSET DM.; RECORDED 03/20/20 13 12:45PM BY LYLY KEVIN MA, CIARA ON/ALIX Obando MD [address] [facility] [address], [place], [address] , [facility] 6 07:08:40 Type 2 diabetes mellitus 66616019 Completed 11/23/2020 Karishma fuentes, [facility] 1 13:51:31 Polyarth ropathy 99186322 Active Not Available [facility] 3 01:37:34 Steatoti c liver disease 177825209 Completed 02/12/2017 Mario Obando MD [address], [place], [address] , [facility] 1 15:14:14 Hypercho lesterol emia 24040190 Active Not Available [facility] 3 01:37:34 Acute lyme disease 274314027 Completed 02/12/2017 Mario Obando MD [address], [place], [address] , [facility] 7 08:51:48 Lower abdomina l pain 84576565 Completed 08/26/2018 Mario Obando MD [address], [place], [address] , [facility] 9 11:06:04 Pain of hip region 51999322 Completed 02/12/2017 Christie fuentes, [facility] 7 08:33:02 Retentio n of urine 771277037 Active 2015 Not Available [facility] 3 01:37:34 Hydronep hrosis 89874103 Completed 201502/12/2017 Mario Obando MD [address], [place], [address] , [facility] 7 08:55:38 Hyperbil irubinem ia 62896418 Completed 201502/12/2017 Mario Obando MD [address], [place], [address] , [facility] 7 08:53:18 Multiple renal cysts 445564117 Active 2015 left parapelv ic Not Available [facility] 3 01:37:34 History of Lyme disease 996011266 Completed 201608/26/2018 Mario Obando MD [address], [place], [address] , [facility] 9 11:06:59 Gout 50676889 Completed 201608/26/2018 Ruddy Diggs PA-C [address], [place], [address] , [facility] 4 11:09:41 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 436815189 Active 2016 Not Available [facility] 3 01:37:34 Total bilirubi n above referenc e range 67788956101 9108 Active 2017 Not Available [facility] 3 01:37:34 Adenomat ous polyp of colon 423496934 Active 2017 Not Available [facility] 3 01:37:34 Retinopa thy due to diabetes mellitus 6855248 Completed 201708/26/2018 mild Mario Obando MD [address], [place], [address] , [facility] 9 11:03:54 History of gout 098227897 Active 2018 Not Available [facility] 3 01:37:34 Snoring 74896593 Active 2018 Not Available [facility] 3 01:37:34 Uncontro lled type 2 diabetes mellitus 493597929 Completed 202002/23/2021 Yesenia Diggs PA-C [address], [place], [address] , [facility] 3 14:32:52 Steatoti c liver disease 549232770 Active 2020 Not Available [facility] 3 01:37:34 Obesity 322716677 Completed 202011/23/2020 Rica fuentes, [facility] 1 15:06:01 Obesity 808979770 Active 2020 Not Available [facility] 3 01:37:34 Bilatera l tinnitus 86071590397 02 Active 2021 Not Available [facility] 3 01:37:34 Hemorrho ids 02020306 Active 2021 Not Available [facility] 3 01:37:34 Type 2 diabetes mellitus without complica tion 980511515 Active 2022 Not Available [facility] 3 01:37:34 Chronic kidney disease stage 3A 579951938 Active 2022 Mario Obando MD [address] [address], [place], [address] , [facility] 3 16:17:10 Supraven tricular tachycar kevin 3071895 Active 2022 Mario Obando MD [address] [address], [place], [address] , [facility] 3 22:10:57 Hyperten sive renal disease 17556321 Active 2023 Yesenia Diggs PA-C [address] [address], [place], [address] , [facility] 4 09:32:33 Body mass index 30+ - obesity 236208987 Active 2023 Mario Obando MD [address] [address], [place], [address] , [facility] 4 09:31:40 Serrated polyp of colon 723357381 Active 2023 Mario Obando MD [address] [address], [place], [address] , [facility] 4 09:33:13 Gout 54518291 Active 2023 Ruddy Diggs PA-C [address] [address], [place], [address] , [facility] 4 11:09:41 Osteoart hritis of joint of left ankle 72733187464 9101 Active 2024 Mario Obando MD [address] [address], [place], [address] , [facility] 5 12:04:25 Plantar fasciiti s of left foot 43031277602 621601 Active 2024 Mario Obando MD [address] [address], [place], [address] , [facility] 5 12:04:43 Renal disorder due to type 2 diabetes mellitus 800888106 Active 2024 Yesenia Diggs PA-C [address] [address], [place], [address] , [facility] 5 13:39:43 Candidia sis of urogenit or site 933763790 Completed 201211/25/2013 IMPRESSI ON: LOOKS TO BE RESOLVIN G AFTER SINGLE ORAL DOSE. WILL TRY COURSE OF TOPICAL THERAPY WELL.; RECORDED 03/20/20 13 12:45PM BY LYLY KEVIN MA, CIARA ON/ALIX Obando MD [address] [address], [place], [address] , [facility] 6 07:08:40 Type 2 diabetes mellitus without complica tion 020905268 Completed 201211/25/2013 RECORDED 03/20/20 13 10:44AM BY LYLY KEVIN MA, STUARTATI ON/ALIX Diggs PA-C [address] [address], [place], [address] , [facility] 3 14:32:46 Uncontro lled type 2 diabetes mellitus 470535552 Completed 201302/12/2017 Yesenia Diggs PA-C [address] [address], [place], [address] , [facility] 3 14:32:52 Type 2 diabetes mellitus without complica tion 197730084 Completed 201308/05/2020 Yesenia Diggs PA-C [address] [facility] [address], [place], [address] , [facility] 3 14:32:46 Chronic nonalcoh olic liver disease 98122484 Completed 201308/26/2018 Mario Obando MD [address] [facility] [address], [place], [address] , [facility] 9 11:07:35 Influenz a vaccine needed 61716376499 06 Completed 201211/25/2013 RECORDED 04/23/20 13 12:09PM BY MARIO Jefferson MD, OFFICE VISIT Mario Obando MD [address] [facility] [address], [place], [address] , [facility] 6 07:08:40 Tobacco user 328201259 Completed 201302/16/2014 RECORDED 08/23/19 14 12:58PM BY LYLY KEVIN MA, OFFICE VISIT Mario Obando MD [address] [address], [place], [address] , [facility] 6 07:08:40 Tobacco user [id number] Completed 201311/25/2013 RECORDED 08/23/19 14 12:51PM BY LYLY KEVIN MA, ANNOTATI ON/ADDEN DUM Mario Obando MD [address] [facility] [address], [place], [address] , [facility] 6 07:08:40 Gastroes ophageal reflux disease 098218786 Completed 201302/12/2017 Mario Obando MD [address] [address], [place], [address] , [facility] 7 08:51:41 Adult health examinat ion Completed 201211/25/2013 IMPRESSI ON: IMMUNIZA TION STATUS NOT CURRENT BUT PT DECLINES DESPITE UNDERSTA NDING POTENTIA L CONSEQUE NCES. WILL SCREEN BASED ON RISK FACTORS. REGULAR DENTAL CARE AND SEATBELT USE ADVISED. DISTRACT ED DRIVING DISCUSSE D.; RECORDED 04/23/20 13 11:46AM BY LYLY KEVIN MA, CIARA ON/ALIX Obando MD [address] [facility] [address], [place], [address] , [facility] 6 07:08:40 Gout 14462369 Completed 201211/25/2013 IMPRESSI ON: OFF OF MEDS WITHOUT RECENT FLARE. WILL SEE IF BASELINE URIC ACID LEVEL IS ELEVATED .; RECORDED 03/20/20 13 12:45PM BY LYLY KEVIN MA, CIARA ON/ALIX Diggs PA-C [address] [facility] [address], [place], [address] , [facility] 4 11:09:41 Essentia l hyperten danna 05858403 Completed 201311/25/2013 IMPRESSI ON: FAIR CONTROL BASED ON RISK FACTORS. HAS ROOM TO WORK ON DIET AND EXERCISE HABITS. WILL CONITNUE CURRENT REGIMEN AND REASSESS AT F/U. IF STILL >130/90 WILL INCREASE ACEI DOSE THEN.; RECORDED 08/23/19 14 12:51PM BY LYLY KEVIN MA, CIARA ON/ALIX Diggs PA-C [address] [facility] [address], [place], [address] , [facility] 5 13:38:48 Leukopen ia 15202506 Completed 201211/25/2013 IMPRESSI ON: WILL SEE IF THIS IS PERSISTA NT.; RECORDED 04/23/20 13 11:46AM BY LYLY KEVIN MA, CIARA ON/ALIX Obando MD [address] [facility] [address], [place], [address] , [facility] 6 07:08:40 Renewal of prescrip tion Completed 201311/25/2013 RECORDED 08/23/19 14 12:51PM BY LYLY KEVIN MA, CIARA ON/ALIX Obando MD [address] [facility] [address], [place], [address] , [facility] 6 07:08:40 Immuniza tion refused Completed 201211/25/2013 RECORDED 04/23/20 13 11:46AM BY LYLY KEVIN MA, CIARA HERMOSILLO/ALIX Obando MD [address] [facility] [address], [place], [address] , [facility] 6 07:08:40 Administ ration of diphther ia and tetanus vaccine Completed 201311/25/2013 RECORDED 08/23/19 14 12:51PM BY LYLY KEVIN MA, CIARA ON/ALIX Obando MD [address] [facility] [address], [place], [address] , [facility] 6 07:08:40 Increase d frequenc y of urinatio n 698959163 Completed 201211/25/2013 IMPRESSI ON: SUSPECT DIABETES , SCREEN FOR INFECTIO N.; RECORDED 01/16/20 13 12:54PM BY LYLY KEVIN MA, CIARA ON/ALIX Obando MD [address] [facility] [address], [place], [address] , [facility] 6 07:08:40 Abnormal weight loss 034053655 Completed 201211/25/2013 IMPRESSI ON: CONSTELL ATION OF SYMPTOMS RAISES CONCERN FOR NEW ONSET DM.; RECORDED 03/20/20 13 12:45PM BY LYLY KEVIN MA, CIARA ON/ALIX Obando MD [address] [address], [place], [address] , [facility] 07:08:40 Notes:Some problems listed i n Documents: #[id number], #[id number] could not be added to this patient's chart. Please review these documents and add these problems to the patient's chart manually as needed. Problem Notes None recorded. Procedures Surgical History Date Name Laterality Status Provider Name and Address Organization Details Recorded Time 025 Diabetic Foot Exam (Monofilament) completed Danni Vieyra [facility] 06/18/2024 13:57:31 024 Diabetic Foot Exam (Monofilament) completed Mario Obando MD [address], [address], [facility] 02/21/2024 09:28:29 024 transurethral prostatectomy completed Mario Obando MD [address], [address], [facility] 09/30/2023 12:11:09 024 Cystourethroscopy completed Mario Obando MD [address], [address], [facility] 07/27/2023 22:49:33 023 stress echocardiography completed Mario Obando MD [address], [address], [facility] 05/02/2023 15:55:33 023 Diabetic Foot Exam (Monofilament) completed Yesenia Diggs PA-C [address], [address], [facility] 02/14/2023 10:37:50 022 Diabetic Foot Exam (Monofilament) completed Mario Obando MD [address], [address], [facility] 03/21/2022 12:52:18 022 Colonoscopy completed Mario Obando MD [address] [address], [place], [address], [facility] 01/25/2022 11:36:19 021 Diabetic Foot Exam (Monofilament) completed Lyly Kevin MA [facility] 11/16/2020 14:22:00 019 Diabetic Foot Exam (Monofilament) completed Mario Obando MD [address] [address], [place], [address], [facility] 08/26/2018 11:31:24 018 Colonoscopy completed Lyly Kevin MA [facility] 08/26/2018 10:35:38 012 Orthopedic Surgery completed Mario Obando MD [address], [address], [facility] 02/12/2017 08:59:51 Imaging Results None recorded. Procedure Notes None recorded. Medical Equipment None Reported. Allergies Allergen ID Allergen Name Allergen Category Reaction Reaction Severity Criticality Documentation Date Start Date Code Code System Note Provider Name and Address Organization Details Recorded Time 79232 hydrochlo rothiazid e medicatio n diarrhea moderate Not available 05/19/2021 5487 RxNorm Mario Obando MD [address], [address], [facility] 09:37:31 Medications Name Sig Start Date Stop Date Status Note LastModified by Organization Details LastModified Time freestyle rudy twice a day 11/01 completed Not Available Not Available Not Available freestyle mis lancets 05/19 completed Not Available Not Available Not Available freestyle 28g lancets USE TO CHECK BLOOD SUGAR TWO TIMES A DAY NEEDED 02/20 completed Not Available Not Available Not Available freestyle lite test strp USE TO CHECK BLOOD SUGAR TWO TIMES A DAY NEEDED 02/20 completed Not Available Not Available Not Available freestyle lite test strips USE TO CHECK BLOOD SUGAR TWO TIMES A DAY NEEDED 02/20 completed Not Available Not Available Not Available freestyle lancets misc 02/20 completed Not Available Not Available Not Available amoxicill in 500 mg capsule Take 1 capsule every 8 hours by oral route for 5 days. 05/01 completed Not Available Not Available Not Available aspirin 81 mg capsule Take 1 capsule every day by oral route. active Not Available Not Available No t Available atorvasta tin 40 mg tablet TAKE 1 TABLET BY MOUTH EVERY DAY active Not Available Not Available No t Available metformin 500 mg tablet TAKE 3 TABLETS BY MOUTH EVERY DAY active Not Available Not Available No t Available prednison e 10 mg tablet TAKE 1 TABLET BY MOUTH THREE TIMES DAILY FOR 5 DAYS WITH food 04/18 completed Not Available Not Available Not Available pravastat in 40 mg tablet Take 1 tablet every day by oral route for 90 days. 08/26 completed Not Available Not Available Not Available ibuprofen 800 mg tablet TAKE 1 TABLET BY MOUTH THREE TIMES DAILY UNTIL FINISHED WITH food 05/01 completed Not Available Not Available Not Available fluconazo le 150 mg tablet ONE TIME DOSE 01/08 completed RECORDED 01/10/20 13 7:16AM BY MARIO Jefferson MD, MEDICATI ON AUTO-MIGUEL CTIVATIO N; Not Available Not Available Not Available FreeStyle Lancets 28 gauge USE TO CHECK BLOOD SUGAR TWO TIMES A DAY NEEDED 2023 active Not Available Not Available Not Avai lable lisinopri l 20 mg tablet 1 tablet by mouth daily 2014 active Not Available Not Available Not Avai lable prednison e 20 mg tablet Take 2 tablets every day by oral route with meal(s) for 5 days. 08/31 completed Not Available Not Available Not Available chlorthal idone 25 mg tablet Take 1 tablet every day by oral route for 30 days. 02/14 completed Not Available Not Available Not Available ciproflox acin 250 mg tablet take one tablet by mouth twice a day 10/28 completed Not Available Not Available Not Available amlodipin e 5 mg tablet TAKE 1 TABLET BY MOUTH EVERY DAY 06/18 completed Not Available Not Available Not Available allopurin ol 100 mg tablet TAKE 2 TABLETS BY MOUTH EVERY DAY active Not Available Not Available No t Available ciproflox acin 500 mg tablet take one tablet by mouth twice a day. start this am and day of procedur e take with a tiny sip of water 10/28 completed Not Available Not Available Not Available peg-elect rolyte solution 420 gram oral solution FOLLOW INSTRUCT MAN PROVIDED BY OFFICE 03/21 completed Not Available Not Available Not Available pravastat in 80 mg tablet Take 1 tablet every day by oral route in the evening for 90 days. 08/05 completed Not Available Not Available Not Available tamsulosi n 0.4 mg capsule TAKE 1 CAPSULE BY MOUTH DAILY AT BEDTIME 08/19 completed Not Available Not Available Not Available amlodipin e 10 mg tablet 2024 active Not Available Not Available Not Avai lable metformin 1,000 mg tablet TAKE 1 TABLET BY MOUTH TWO TIMES A DAY 11/16 completed Not Available Not Available Not Available indometha willa 50 mg capsule TAKE 1 CAPSULE BY MOUTH THREE TIMES DAILY NEEDED FOR 7 DAYS 08/19 completed has CKD Not Available Not Available Not Available lisinopri l 30 mg tablet TAKE 1 TABLET BY MOUTH EVERY DAY 08/26 completed Not Available Not Available Not Available hydrochlo rothiazid e 25 mg tablet Take 1 tablet every day by oral route. 08/05 completed Not Available Not Available Not Available metoprolo l succinate ER 25 mg tablet,ex tended release 24 hr TAKE 1/2 (HALF) TABLET BY MOUTH EVERY DAY 2024 active Not Available Not Available Not Avai lable lisinopri l 40 mg tablet TAKE 1 TABLET BY MOUTH EVERY DAY 2024 active Not Available Not Available Not Avai lable clotrimaz ole 1 % topical cream TWO TIMES DAILY 01/22 completed RECORDED 01/31/20 13 3:01PM BY MARIO Jefferson MD, MEDICATI ON AUTO-MIGUEL CTIVATIO N; Not Available Not Available Not Available doxycycli ne hyclate 100 mg tablet Take 1 tablet twice a day by oral route for 21 days. 02/12 completed Not Available Not Available Not Available Thalitone 15 mg tablet TAKE 1 TABLET BY MOUTH EVERY DAY 05/01 completed Not Available Not Available Not Available metoprolo l tartrate 25 mg tablet Take 0.5 tablets every day by oral route. 05/01 completed Not Available Not Available Not Available metformin ER 500 mg tablet,ex tended release 24hr (osmotic) Take 2 tablets every day by oral route for 30 days. 03/18 completed Not Available Not Available Not Available Freestyle System DAILY NEEDED 01/30 completed RECORDED 01/31/20 13 3:02PM BY CIARA PATEL ON/ALIX MOTLEY;DX: 250.00 Not Available Not Available Not Available FreeStyle Unistik 2 BID PRN 2012 active RECORDED 03/20/20 13 11:02AM BY LYLY KEVIN MA, OFFICE VISIT;DX : 250.00 Not Available Not Available Not Available FreeStyle Test BID PRN 2012 active RECORDED 03/20/20 13 11:02AM BY LYLY KEVIN MA, OFFICE VISIT;DX :250.00 Not Available Not Available Not Available hydrochlo rothiazid e 12.5 mg tablet Take 1 tablet every day by oral route. 04/22 completed Not Available Not Available Not Available FreeStyle Lite Strips USE TO CHECK BLOOD SUGAR TWO TIMES A DAY NEEDED 2023 active Not Available Not Available Not Avai lable Lantus Solostar U-100 Insulin 100 unit/mL (3 mL) subcutane ous pen INJECT 25 UNITS SUBCUTAN EOUSLY EVERY DAY 08/02 completed Not Available Not Available Not Available BD Ultra-Fin e Mila Pen Needle 32 gauge x 5/32 USE DIRECTED TO INJECT LANTUS INSULIN ONCE DAILY DIRECTED 08/02 completed Not Available Not Available Not Available Trulicity 1.5 mg/0.5 mL subcutane ous pen injector INJECT CONTENTS OF 1 PEN SUBCUTAN EOUSLY ONCE A WEEK 11/01 completed Not Available Not Available Not Available Trulicity 0.75 mg/0.5 mL subcutane ous pen injector INJECT 0.75MG SUBCUTAN EOUSLY EVERY WEEK 03/07 completed Not Available Not Available Not Available Trulicity 3 mg/0.5 mL subcutane ous pen injector INJECT THE CONTENTS OF 1 SYRINGE SUBCUTAN EOUSLY EVERY WEEK 01/17 completed Not Available Not Available Not Available Trulicity 4.5 mg/0.5 mL subcutane ous pen injector INJECT THE CONTENTS OF 1 SYRINGE (4.5 MG) SUBCUTAN EOUSLY EVERY WEEK 06/18 completed Not Available Not Available Not Available Mounjaro 5 mg/0.5 mL subcutane ous pen injector INJECT 5 MG SUBCUTAN EOUSLY EVERY WEEK DIRECTED . ROTATE INJECTIO N SITES IN THE ABDOMEN, THIGH OR UPPER ARM 2024 active Not Available Not Available Not Avai lable Mounjaro 2.5 mg/0.5 mL subcutane ous pen injector Inject 2.5 mg every week by subcutan eous route. 08/02 completed samples Not Available Not Available Not Available FreeStyle Julieth 3 Sensor device APPLY 1 SENSOR EVERY 14-15 DAYS DIRECTED active Not Available Not Available No t Available Vitals Date Recorded Body height Body mass index (BMI) Body weight Heart rate Oxygen saturation Oxygen saturation in Arterial blood by Pulse oximetry Body temperature Systolic And Diastolic Provider Name and Address Organization Details Last Updated DateTime 5 185.42 cm 35.2 kg/m2 256838. 16 g 64 /min 97 % 97 % 98.2 [degF] 148/77 mm[Hg] Kelsi garcia MA [facility] 5 13:21:55 Date Recorded Systolic And Diastolic Provider Name and Address Organization Details Last Updated DateTime 08/19/2024 138/87 mm[Hg] Mario Obando MD [address] [facility] [address], [place], [address], [facility] 08/19/2024 09:42:40 Date Recorded Body height Body mass index (BMI) Body weight Oxygen saturation Oxygen saturation in Arterial blood by Pulse oximetry Heart rate Body temperature Systolic And Diastolic Provider Name and Address Organization Details Last Updated DateTime 5 185.42 cm 35.4 kg/m2 796306. 76 g 99 % 99 % 64 /min 97.6 [degF] 183/88 mm[Hg] Sarita Duke MA [facility] 5 08:59:39 Date Recorded Body height Body mass index (BMI) Body weight Heart rate Oxygen saturation Oxygen saturation in Arterial blood by Pulse oximetry Body temperature Systolic And Diastolic Provider Name and Address Organization Details Last Updated DateTime 4 185.42 cm 34.4 kg/m2 413624. 61 g 65 /min 98 % 98 % 97.7 [degF] 135/85 mm[Hg] Brenda Corona [facility] 4 08:42:29 Date Recorded Body height Body mass index (BMI) Body weight Heart rate Oxygen saturation Oxygen saturation in Arterial blood by Pulse oximetry Body temperature Systolic And Diastolic Provider Name and Address Organization Details Last Updated DateTime 4 185.42 cm 35 kg/m2 729810. 98 g 73 /min 97 % 97 % 96.4 [degF] 159/91 mm[Hg] Génesis Neil [facility] 4 10:28:40 Social History Question Answer Notes LastModified by Organizat ion Details LastModified Time Tobacco Smoking Status Former Smoker quit cigarettes in 1989; has cigars rarely Mario Obando MD [address] [address], [place], [address], [facility] 11/16/2020 14:49:31 Do You Have An Advance Directive? Yes HCP/ -Ольга [id number] Information not available 03/16/2020 Is Blood Transfusion Acceptable In An Emergency? Yes [id number] Information not available 03/16/2020 What Is Your Level Of Caffeine Consumption? Moderate Coffee, Tea E2gadir Information not available 03/21/2022 How Much Tobacco Do You Chew? None [id number] Information not available 03/16/2020 In The 14 Days Before Symptom Onset, Have You Had Close Contact With A Laboratory-confi rmed COVID-19 While That Case Was Ill? No [id number] Information not available 03/16/2020 In The 14 Days Before Symptom Onset, Have You Had Close Contact With A Person Who Is Under Investigation For COVID-19 While That Person Was Ill? No [id number] Information not available 03/16/2020 Have You Been To An Area Known To Be High Risk For COVID-19? No [id number] Information not available 03/16/2020 What Type Of Diet Are You Following? DIABETIC [id number] Information not available 03/16/2020 Which Illicit Or Recreational Drugs Have You Used? None [id number] Information not available 03/16/2020 Education 4 Year College Information not available 08/17/2014 When Did You Quit Smoking? 16+yearssin rosita berrios Information not available 11/16/2020 Live Alone Or With Others? With Others And Cat Information not available 11/16/2020 Do You Take Precautions To Prevent Distracted Driving? Yes Information not available 08/19/2015 How Often Do You Need To Have Someone Help You When You Read Instructions, Pamphlets, Or Other Written Material From Your Doctor Or Pharmacy? Never Information not available 08/19/2015 Have You Served In The ? No [place]ig[place] Information not available 02/12/2017 Have You Or Anyone In Your Household Had Any Of The Following Symptoms In The Last 14 Days: Sore Throat, Cough, Chills, Body Aches For Unknown Reasons, Shortness Of Breath For Unknown Reasons, Loss Of Smell, Loss Of Taste, Fever At Or Greater Than 100 Degrees Fahrenheit? No Information not available 08/05/2020 Are You Or Anyone In Your Household A Health Care Provider Or Emergency Responder? No Information not available 08/05/2020 To The Best Of Your Knowledge Have You Been In Close Proximity To Any Individual Who Tested Positive For COVID-19? No Information not available 08/05/2020 *AWV ONLY* Are You Presently Prescribed Opioid Medication By PCP Or Specialist? If YES -Provider Assess The Benefit For Other, Non-opioid Pain Therapies Instead, Even If The Patient Does Not Have OUD But Is Possibly At Risk. No Information not available 11/16/2020 Have You Recently Traveled To A COVID-19 High Risk Area Or Gathering In The Last 10 Days? No Information not available 08/05/2020 What Was The Date Of Your Most Recent Tobacco Screening? 08/19/2024 [email or web address] Information not available 08/19/2024 How Many Children Do You Have? 1 Daughter-28 Y/o-optometry Information not available 03/21/2022 What Is Your Current Pack Years? 30ormorepac martins Information not available 11/16/2020 Seat Belts Used Routinely Yes Information not available 08/17/2014 Are You Sexually Active? No Information not available 11/16/2020 Smoke Alarm In Home Yes Information not available 08/19/2015 At What Age Did You Start Smoking Tobacco? 18 [id number] Information not available 03/16/2020 Are You Passively Exposed To Smoke? No Information not available 08/19/2015 How Much Tobacco Do You Smoke? 1 PPD [id number] Information not available 03/16/2020 Do You Use Sunscreen Routinely? Yes [id number] Information not available 03/16/2020 How Many Years Have You Smoked Tobacco? 15 [id number] Information not available 03/16/2020 Sex: Unknown Functional Status Question Answer Note LastModified by Organizat ion Details LastModified Time Do you use any illicit or recreational drugs? No Information not available 02/21/2024 What is your level of alcohol consumption? Occasional Information not available 03/21/2022 Do you or have you ever used smokeless tobacco? Never used smokeless tobacco [id number] Information not available 03/16/2020 Are you currently employed? Yes [id number] Information not available 03/16/2020 Are you able to walk? YESWOREST Information not available 03/21/2022 Are you able to care for yourself? 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 Never used electronic cigarettes [id number] Information not available 03/16/2020 What is your exercise level? Moderate daily Information not available 03/21/2022 Mental Status None recorded. Family History Relationship Description Onset Age of this Age Resolved Age Notes LastModified by Organization Details LastModified Time Mother Malignant neoplastic disease brain abolcun Not available 2015 09:07:29 Mother Heart disease abolcun Not available 2015 09:07:29 Mother Disorder of thyroid gland abolcun Not available 2015 09:07:29 Father Abdominal aortic aneurysm abolcun Not available 2015 09:07:29 Brother Well adult abolcun Not availab le 12/03/2015 09:07:29 Brother Well adult abolcun Not availab le 12/03/2015 09:07:29 Medical History Condition Response Coronary Artery Disease N Gout N Other N Blood Diseases N Kidney Stones N Hyperthyroidism N Breast Cancer N mrsa exposure N Lung Disease N Hypothyroidism N Depression N COPD N Defects or Inherited Disease N Developmental or Behavioral Disorders N Breast Problem N Anesthesia Complications N Headaches/Migraines N Varicose Veins N Anxiety Disorder N Muscle, Joint, or Bone Problems N Obesity Y Vision or Eye Problems N Arthritis N Head Injury/Concussion N Infertility N Polyps N Mental Disorder N Congenital Anomalies N Acid Reflux (GERD) N Cancer N Stroke N ADHD N Endometriosis N High Cholesterol Y Liver Disease N Headaches N Fibromyalgia N Kidney Disease N Heart Problems N Ear or Hearing Problems N Hospitalizations N Thyroid Problems N GI Problems N Developmental Delay N Acne N Eating Disorder N Skin Problems N Anemia N Constipation N Bladder Problems N Mental Illness N Diabetes Y Ovarian Cancer N Bedwetting N Blood Transfusions N Heart Problems/Murmur N Seizures/Epilepsy N Tuberculosis N AIDS/HIV N Congestive Heart Failure (CHF) N Eczema N Abuse/Domestic Violence N Diverticulitis N Asthma N Allergies N Reflux/GERD N Hepatitis N Heart Disease N Pulmonary Embolism N Hypertension Y Chicken Pox N Autism Spectrum Disorder (ASD) N Osteoporosis N Immunizations Vaccine Type Date Status Note Provider Name and Address Organization Details Recorded Time Hep A, adult 016 completed Not Available [facility] 02/16/2023 01:37:34 COVID-19, mRNA, LNP-S, PF, 30 mcg/0.3 mL dose 021 completed Not Available [facility] 02/16/2023 01:37:34 COVID-19, mRNA, LNP-S, PF, 30 mcg/0.3 mL dose 021 completed Not Available [facility] 02/16/2023 01:37:34 COVID-19, mRNA, LNP-S, PF, 30 mcg/0.3 mL dose 021 completed Not Available [facility] 02/16/2023 01:37:34 Influenza, split virus, quadrivalent, PF 015 completed Not Available [facility] 02/16/2023 01:37:34 Influenza, split virus, trivalent, PF 014 completed Not Available [facility] 02/16/2023 01:37:34 Influenza, split virus, quadrivalent, PF 017 cancelled patient objection Not Available [facility] 05/31/2019 02:22:11 pneumococcal polysaccharide PPV23 019 cancelled patient objection Not Available [facility] 05/31/2019 02:21:28 Tdap 013 completed Not Available [facility] 02/16/2023 01:37:34 influenza, seasonal, intradermal, preservative free 013 completed Not Available [facility] 02/16/2023 01:37:34 Influenza, split virus, quadrivalent, PF 022 cancelled patient objection Mario Obando MD [address], [address], [facility] 05/19/2021 09:36:15 Past Encounters Encounter ID Performer Location Encounter Start Date Encounter Closed Date Diagnosis/Indication Diagnosis SNOMED-CT Code Diagnosis ICD10 Code Diagnosis Note [id number] [facility] [address] [facility] [place] [address] 04/23/2013 00:00:00 [id number] [facility] [address] [facility] [place] [address] 08/22/2013 00:00:00 [id number] [facility] [address] [facility] [place] [address] 01/07/2013 00:00:00 [id number] [facility] [address] [facility] [place] [address] 01/15/2013 00:00:00 [id number] [facility] [address] [facility] [place] [address] 03/20/2013 00:00:00 [id number] Mario Obando MD Main Office [address] [address] [place] [address] 02/16/2014 08:07:23 02/16/2014 08:46:15 Type 2 diabetes mellitus 83949286 Was well controlled . Need to track down labs friom last week, but based on home BG levels and last A1C sounds well controlled . Needs infl uenza immunization 227301733 Essential hypertension 92871530 Not at goal, likely secondary to weight gain. Will titrate ACEI dose. Polyarthropathy 56916756 Will start eval by screening for inflammato ry and reactive arthropath y. If labs negative suspect OA but would consult rheum. [id number] Mario Obando MD Main Office [address] [place] [address] 08/17/2014 10:30:34 08/17/2014 11:45:37 Essential hypertension 96452337 Well controlled . Adult heal th examination 136121916 Immunizati on status utd short of pneumovax which patient declines at this time. Will screen based on risk factors. Regular dental and ophtho care advised as well as seatbelt and sunscreen use. Distracted driving discussed. Advance directives in place. Type 2 kevin betes mellitus 70826267 Body mass index 30+ - obesity 817019303 Hypercholesterolemia 33573588 Will reassess and titrate statin therapy to goal LDL <100. [id number] Mario Obando MD Main Office [address] [place] [address] 02/17/2015 09:37:48 02/17/2015 10:35:06 Essential hypertension 86664865 I10 Not at goal. Poor diet and exercise habits likely contributi ng. Pt advised to work on these issues. Will titrate ACEI dose. Type 2 kevin betes mellitus 05901300 E11.9 Due for reassessme nt. Will increase metformin dose if A1C >7.5. Hypercholesterolemia 136 80414 E78.0 LDL at goal and rx well tolerated. Will continue current dose. Needs infl uenza immunization 264321447 Z23 [id number] Yesenia Diggs PA-C Main Office [address] [place] [address] 03/16/2015 10:52:34 03/16/2015 11:18:29 Acute lyme disease 340121067 A69.20 Acute Lyme disease with EM. Start Doxycyclin e 100 mg BID for 21 days. F/u as needed. [id number] Mario Obando MD Main Office [address] [address] [place] [address] 08/19/2015 09:17:32 08/19/2015 10:47:24 Adult health examination 511286584 Z00.01 Immunizati on status utd short of pneumovax which patient declines at this time. Will screen based on risk factors. Regular dental and ophtho care advised as well as seatbelt and sunscreen use. Distracted driving discussed. Advance directives in place. Body mass index 30+ - obesity 096783133 E66.01 Z68.38 Essential hypertension 62443204 I10 Fair control. Continue current regimen for now. Needs to increase physical activity and weight loss. Type 2 kevin betes mellitus 58287328 E11.9 Hypercholesterolemia 136 41765 E78.2 Screening for malignant neoplasm of colon 073919922 Z12.11 [id number] Mario Obando MD Main Office [address] [address] [place] [address] 12/03/2015 08:47:31 12/03/2015 09:47:53 Uncontrolled type 2 diabetes mellitus 107477811 E11.65 Will titrate metformin dose to goal A1C <7. Essential hypertension 07768244 I10 Fair control. Continue current regimen for now. Needs to increase physical activity and weight loss. Hypercholesterolemia 136 18116 E78.2 Well controlled . Continue current regimen. Lower abdominal pain 545 54188 R10.30 Will evaluate with imaging for both pain and f/u on LFT elevation. Pain of hip region 95169 002 M25.551 Screen for arthritis. If imaging nl and pain persists. May need PMR eval. [id number] Mario Obando MD Main Office [address] [address] [place] [address] 03/29/2016 14:34:29 03/29/2016 15:36:20 Essential hypertension 35627525 I10 Normotensi ve at last visit and at home. Will continue current regimen and reassess in short term. Hypercholesterolemia 136 22226 E78.2 Well controlled , LDL <100. Continue current regimen. Type 2 kevin betes mellitus 88375951 E11.9 Due for labs. Contine current regimen if A1C remains <7. Chronic no nalcoholic liver disease 96536520 K76.9 Will follow LFT's. Pt understand s potential care home health consequenc es and has made efforts toward weight loss and healthier eating. Retention of urine 37003 4002 R33.9 Pt will call to reschedule his missed appt. Need to rule out outflow obstructio n. [id number] Mario Obando MD Main Office [address] [facility] [address] [place] [address] 05/19/2016 10:43:39 05/19/2016 12:21:06 Essential hypertension 16593202 I10 Better on recheck. Pt doing well/wendy r with diet and exercise. Will continue ACEI alone for now and titrate dose vs add diuretic should BP increase >140/90. Hydronephrosis 12869064 N13.[address] report and urology note. [id number] Yesenia Diggs PA-C Main Office [address] [facility] [address] [place] [address] 11/10/2016 11:17:24 11/10/2016 11:39:39 Tick bite 70501139 S20.96XA Erythema c hronica migrans 71125576 A26.0 [id number] Mario Obando MD Main Office [address] [address] [place] [address] 02/12/2017 08:20:33 02/12/2017 09:44:09 Adult health examination 188997796 Z00.00 Immunizati on status utd short of pneumovax/ flu which patient declines at this time. Understand s potential consequenc es to deferral. Will screen based on risk factors. Regular dental and ophtho care advised as well as seat belt and sunscreen use. Distracted driving discussed. Advance directives in place. Screening for malignant neoplasm of colon 422719027 Z12.11 Overdue for screening. Will arrange appt nolan. Body mass index 30+ - obesity 222333722 E66.01 Z68.35 Needs infl uenza immunization 525695645 Z23 Hypercholesterolemia 136 64906 E78.2 ? statin compliance as pt has not filled rx in many months. New rx sent in, will monitor. Type 2 kevin betes mellitus 01784355 E11.9 Well controlled . Continue current regimen. Gout 32636556 M10.9 Has history, not on meds. Benign pro static hyperplasia with outflow obstruction 363197003 N40.1 Has urology f/u scheduled. Nail deformity 342776057 L60.8 Pt will call if interested in pursuing treatment Essential hypertension 30903178 I10 Pt doing well/wendy r with diet and exercise. Will continue ACEI alone for now and titrate dose vs add diuretic should BP increase >130/90. [id number] Mario Obando MD Main Office [address] [facility] [address] [place] [address] 05/04/2017 12:40:03 05/04/2017 13:15:46 Gout 78807391 M10.9 Has history flares infrequent but seems to be having one now. Will check uric acid level and try a short course of prednisone . Pt advised to monitor sugars closely whiel on steroid and call if >250 consistent ly. Type 2 kevin betes mellitus without complication 740532627 E11.9 [id number] Mario Obando MD Main Office [address] [facility] [address] [place] [address] 06/14/2017 08:11:15 06/14/2017 08:52:04 Type 2 diabetes mellitus without complication 590530748 E11.9 Well controlled , continue current regimen. Increase exercise and weight loss encouraged . Hypercholesterolemia 136 07019 E78.2 ? statin compliance as pt has not filled rx in many months. New rx sent in, will monitor. Gout 73621494 M10.9 Flares infrequent with high nl UA level. Will monitor for now. Essential hypertension 41193283 I10 Not at goal. Will titrate ACEI dose. Total bili argueta above reference range [id number] 53549 R17 Likely Gilbert's Will monitor. [id number] Mario Obando MD Main Office [address] [facility] [address] [place] [address] 10/29/2017 12:38:18 10/29/2017 13:29:48 Essential hypertension 82337611 I10 Not at goal. Will add diuretic. Pt advised of common/ser ious potential side effects and to call with any problems. Hypercholesterolemia 136 94798 E78.2 ? statin compliance as pt has not filled rx in many months. New rx sent in, will monitor. Goal LDL <100. Type 2 kevin betes mellitus without complication 082447947 E11.9 Well controlled , continue current regimen. Increased physical activity and weight loss encouraged . [id number] Mario Obando MD Main Office [address] [facility] [address] [place] [address] 08/26/2018 10:08:17 08/26/2018 11:29:30 Adult health examination 245271016 Z00.00 Immunizati on status utd short of pneumovax/ flu which patient continues to decline at this time. Understand s potential consequenc es to deferral. Will screen based on risk factors. Regular dental and ophtho care advised as well as seat belt and sunscreen use. Distracted driving discussed. Advance directives in place. Type 2 kevin betes mellitus 59625040 E11.9 Well controlled . Continue current regimen. Administra tion of pneumococcal vaccine 58979747 Z23 Body mass index 30+ - obesity 485992218 E66.01 Z68.36 Hypercholesterolemia 136 54827 E78.2 LDL not at goal. Will titrate Statin to goal LDL <100. Snoring 58055823 R06.83 Has symptoms and risk factors c/w possible DENNIS. Screening declined by pt. Understand s potential health consequenc es to untreated sleep apnea. 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 Will titrate diuretic. Pt advised of common/ser ious potential side effects and to call with any problems. Type 2 kevin betes mellitus without complication 243934679 E11.9 Less well controlled , continue current regimen. Wants to work on better dietary habits before increasing metformin. If >7.5 at f/u will need increase. Hypercholesterolemia 136 93935 E78.2 LDL not at goal. Wants to work on diet before switching to more potent statin. [id number] Mario Obando MD Main Office [address] [facility] [address] [place] [address] 08/04/2019 15:05:48 08/04/2019 16:19:32 Gout 84096063 M10.9 Based on descriptio n most likely a gout flare. Will see if indomethac in helps without affording severe GI upset. Prefer not to use prednisone given DM. Colchicine would be another viable option. Call inb/worse. [id number] Mario Obando MD Main Office [address] [facility] [address] [place] [address] 08/05/2020 12:48:56 08/05/2020 13:39:11 Essential hypertension 94454407 I10 Currently at goal on max dose of lisinopril and working well. Continue as is. Uncontroll ed type 2 diabetes mellitus 161139300 E11.65 Very poor control. Declines insulin therapy. Would like to work on diet and metformin compliance . Suspect weight loss is from this. Hypercholesterolemia 136 39140 E78.2 Likely needs treatment but I would like him to have labs first and better control of DM. History of gout 64244558 4 Z87.39 Noncomplia nce with medication regimen 537779293 Z91.14 Pt advised that continued non compliance can lead to severe disease consequenc es. WIll go for labs nolan. [id number] Mario Obando MD Main Office [address] [address] [place] [address] 11/16/2020 14:12:55 11/16/2020 15:16:32 Adult health examination 454007385 Z00.00 Immunizati on status utd short of pneumovax/ flu which patient continues to decline at this time. Shingrix advised via local pharmacy. Will screen based on risk factors. Regular dental and ophtho care advised as well as seat belt and sunscreen use. Distracted driving discussed. Advance directives in place. Varicella vaccination 68 254808 Z23 Hypercholesterolemia 136 33034 E78.2 Lipids normal, will focus on DM control first. Essential hypertension 84001416 I10 BP low with orthostati c symptoms. Will reduce ACEI dose. Screening for malignant neoplasm of colon 366805163 Z12.11 Overdue for screening. Will arrange appt nolan. Hepatitis C screening 41 9201759 Z11.59 Cigar smoker 29508168 Z7 2.0 Nocturia 598306628 R35.1 Uncontroll ed type 2 diabetes mellitus 296765229 E11.65 Well controlled . Continue current regimen. Steatotic liver disease 136819120 K76.0 Will monitor. Liver toxin avoidance advised. Pain of mu ltiple joints 14443043 M25.50 Obesity 496761605 E66.9 Z68.34 [id number] Yesenia Diggs PA-C Main Office [address] [facility] [address] [place] [address] 11/23/2020 12:58:52 11/23/2020 13:42:22 Uncontrolled type 2 diabetes mellitus 173838146 E11.65 A1C has worsened since last visit. A1C today was 12.3%.Cont inue to monitor glucose TID (fasting, pre-lunch, pre-dinner ).Recommen d low calorie, low carb, eliminatio n of process foods, and increased exercise. Continue Metformin 500 mg 2 BID. Will refer to [facility] for education and dietary instructio n. Start Lantus at 10 units daily, instructed to increase to 15 units if fasting glucose above 150 in 5 days. Will prescribe Trulicity 0.75mg weekly. Demo injections were demonstrat ed. Advised on side effects of medication s.Recommen d to see Ophthalmol ogist if haven't seen in 1 year.Follo w up in 4 weeks with log. Body mass index 30+ - obesity 421676207 Z68.34 Recommend low calorie, low carb, eliminatio n of processed foods, and increased exercise.W ill refer to nutritioni st. Obesity 417807240 E66.9 [id number] Yesenia Diggs PA-C Main Office [address] [facility] [address] [place] [address] 12/28/2020 14:21:53 12/28/2020 14:48:40 Uncontrolled type 2 diabetes mellitus 151754517 E11.65 Improved diabetic control with Lantus and trulicity on board. Pt. is advised now to lower total calories as his weight went up. Repeat A1c , BMP and microalbum in in 3 weeks. Consider increasing trulicity to 1.5 mg weekly to eventually stop Lantus. F/u 2 m. [id number] Sandy laura MD [facility] [address] [facility] [address] [place] [address] 03/07/2021 08:19:29 03/07/2021 10:23:21 Type 2 diabetes mellitus without complication 580699601 E11.9 We will increase trulicityt o1.5 mg weekly to help weight loss and continue metfromin 50 mg 3 tabs daily. Discussed increase in exercise activity and lower calories in order to lose the weight. F/u 3 m. [id number] Mario Obando MD Main Office [address] [place] [address] 05/19/2021 08:53:10 05/19/2021 10:29:44 Essential hypertension 43011472 I10 BP climbing with weight. Suspect a component of NA sensitivit y. Will try chlorthali done as HCTZ was not well tolerated in the past. Advised to go for labs in 2 weeks. Hypercholesterolemia 136 03078 E78.2 Lipids normal, pt reports compliance with statin. Type 2 kevin betes mellitus without complication 716942076 E11.9 Complying with treatment and control is significan tly improved. Working with . Needs infl uenza immunization 510158720 Z23 Bilateral tinnitus 30794 33115 102 H93.13 No concerning exam findings, but with new onset will ask ENT to help evaluate further. [id number] Zelalem Schneider MD [facility] [address] [facility] [address] [place] [address] 06/13/2021 08:26:16 06/13/2021 16:10:54 Type 2 diabetes mellitus without complication 300188907 E11.9 Recommend to repeat A1c and cmp. If stable , continue current medication s, but increase exercise activity and lower total calories. F/u 4 m. [id number] Trisha Horowitz MD Main Office [address] [facility] [address] [place] [address] 11/01/2021 13:50:43 11/01/2021 14:26:58 Uncontrolled type 2 diabetes mellitus 431047391 E11.65 Significan t hyperglyce zoë. ? if related to COVID infection in August. Restart lantus at 15 u daily, increase trulicity to 3 mg weekly, lower all calories particular ly carbs, increase hydration. F/u 6 weeks. [id number] Trisha Horowitz MD Main Office [address] [place] [address] 01/17/2022 10:25:49 01/17/2022 11:26:57 Uncontrolled type 2 diabetes mellitus 738482634 E11.65 A1C significan tly improved from 11.1% to 8.2%. Pt. is not compliant to lantus and takes less metfromin than prescribed . restart basal insulin ( samples of Toujeo given 1 month supply ) 10 u daily in the am.Trulici ty 3mg currently to complete current script ( 1 month remaining) and increase to max 4.5 mg weekly.Met formin 500mg increase to 1500 mg daily, 1 in the am and 2 po with supper. Diet - encourage low calories/l ow carbs and increase hydration. Increase exercise activity. F/U in 3 months. Repeat bmp and urine. Recommend to schedule ophthalmol ogy. Essential hypertension 87618778 I10 [id number] Mario Obando MD Main Office [address] [place] [address] 03/21/2022 10:56:37 03/21/2022 11:46:55 Adult health examination 953552809 Z00.00 Immunizati on status utd short of pneumovax/ flu which patient continues to decline at this time. Shingrix, and bivalent COVID 19 booster advised via local pharmacy. Will screen based on risk factors. Regular dental and ophtho care advised as well as seat belt and sunscreen use. Distracted driving discussed. Advance directives in place. Body mass index 30+ - obesity 900313328 E66.01 Z68.36 Varicella vaccination 68 367433 Z23 Total bili argueta above reference range 5341701223 20783 R17 Likely Gilbert[facility] Will monitor. Uncontroll ed type 2 diabetes mellitus 859530125 E11.65 Under better control. Working with [employer]. Hypercholesterolemia 136 16132 E78.2 Pt is not on pravastati n anymore because of compliance . Will reassess and readdress depending on CVD risk. Nocturia 540809502 R35.1 [id number] Yesenia Diggs PA-C Main Office [address] [address] [place] [address] 04/18/2022 10:55:15 04/18/2022 11:50:27 Uncontrolled type 2 diabetes mellitus 503124887 E11.65 A1c is back up due to steroids and diet. We will try Mounjaro at 2.[address] of Trulicity 4.5 mg as he is having indigestio n symptoms with high dose Trulicity. Continue metformin and increase lantus to 25 u daily. Pt. will finish up Trulicity for 4 more last injections and switch to Mounjaro 2.5 mg samples given. F/u 2 m. Pt. was advised to try Julieth 3 CGM for testing. [id number] Trisha Horowitz MD Main Office [address] [address] [place] [address] 08/02/2022 13:44:36 08/02/2022 14:27:43 Type 2 diabetes mellitus without complication 086131823 E11.9 A1c is at goal. Pt. is advised to continue Trulicity max dose and metformin as well as low carb low calorie diet. Pt. is advised to add more regular exercise activity. ADvised to have repeat labs fasting. F/u 3-4 m. Hypercholesterolemia 136 90895 E78.2 Benign pro static hyperplasia with outflow obstruction 253566615 N13.8 [id number] Trisha Horowitz MD Main Office [address] [address] [place] [address] 02/14/2023 09:23:06 02/14/2023 10:26:14 Type 2 diabetes mellitus without complication 218491467 E11.9 Pt. is advised to continue Julieth use. Repeat labs fasting including A1c and microalbum in and lipids. Pt. is advised to continue Trulicity max dose and metformin 1500 mg daily as well as low carb low calorie diet. Pt. is advised to add more regular exercise activity. If stable A1c, f/u 4 m. Essential hypertension 11806482 I10 BP is above norm . Begin chlorthali done 15 mg ( pt had dizziness with 25 mg dose in the past). Check blood pressure daily at last 1 hr after meds. Continue low sodium diet . F/u with PCP as scheduled in April. Repeat labs in 1-2 weeks as discussed. [id number] Mario Obando MD Main Office [address] [address] [place] [address] 04/23/2023 09:05:09 04/24/2023 13:39:48 [id number] Mario Obando MD Main Office [address] [address] [place] [address] 05/01/2023 08:23:45 05/01/2023 09:16:23 Essential hypertension 42876226 I10 BP climbing with weight. Suspect a component of NA sensitivit y. Will try chlorthali done as HCTZ was not well tolerated in the past only if Cr/renal function has normalized . Hypercholesterolemia 136 02656 E78.2 Will monitor on atorovasta in. Goal LDL <100. Type 2 kevin betes mellitus without complication 877833219 E11.9 Complying with treatment and control is significan tly improved, but overdue for reassessme nt. Working with . Benign pro static hyperplasia with outflow obstruction 181940639 N13.8 Overdue for urology follow, having worsening symptoms Serum crea tinine above reference range 622224897 R79.89 Cr 1.5 on 04/20, will reassess. Urinary incontinence 165 125734 R32 Need to characteri ze bladder function/e mptying Pain of le ft knee region 1786423101 72510 M25.562 Improving over past few days. Imaging deferred for now. [id number] Trisha Horowizt MD Main Office [address] [address] [place] [address] 06/27/2023 09:01:47 06/27/2023 09:40:30 Type 2 diabetes mellitus without complication 421940881 E11.9 Pt. is advised to continue Julieth use. We will do uploads every 8 weeks. Lower metfromin to 1000 mg daily for renal dosing. Continue max Trulicity. Continue low alexis diet and exercise. F/u 4 m. Consider adding Jardiance 10 mg. Chronic ki dney disease stage 3A 089695697 N18.31 F/u with renal. Continue acei. Consider SGLT-2 Jardiance 10 mg. Hypertensi ve renal disease 00382570 I12.9 Blood pressure above target. Recom adding amlodipine 5 mg and continue lisinopril 40 and metoprolol . Continue low sodium diet . Hypercholesterolemia 136 08939 E78.2 Continue atorvastat in 40 , repeat fasting lipids before physical in August. [id number] LU PALACIOS MD Main Office [address] [address] [place] [address] 08/22/2023 14:07:36 08/22/2023 14:09:22 [id number] Mario Obando MD Main Office [address] [address] [place] [address] 10/18/2023 08:37:09 10/18/2023 08:48:03 [id number] Zelalem Schneider MD Main Office [address] [address] [place] [address] 10/29/2023 14:17:53 10/29/2023 14:35:11 Gout 35273733 M10.9 hx of GOUT-last flare up was in 2019-sympt oms of erythema, swelling, and extreme sensitivit y to right great toe-will provide indomethac in course-kirstin l check uric acid in 2-3 weeks-pt will contact the office if no improvemen t or symptoms worsening [id number] Mario Obando MD Main Office [address] [address] [place] [address] 12/14/2023 08:14:17 12/14/2023 08:21:03 [id number] Mario Obando MD Main Office [address] [address] [place] [address] 02/13/2024 08:36:16 02/13/2024 08:43:26 [id number] Mario Obando MD Main Office [address] [address] [place] [address] 02/21/2024 08:19:05 02/21/2024 09:21:27 Adult health examination 414577909 Z00.00 Tetanus/fl u declined, pneumovax strongly encouraged , shingrix and COVID 19 booster advised via local pharmacy. Will screen based on risk factors. Regular dental and ophtho care advised as well as seat belt and sunscreen use. Distracted driving discussed. Advance directives in place. Influenza vaccination declined 868782364 Z28.21 Body mass index 30+ - obesity 283941084 E66.01 Z68.34 Varicella vaccination 68 491569 Z23 Total bili argueta above reference range 1266666889 19662 R17 Likely [facility] Will monitor. Hypercholesterolemia 136 45941 E78.2 Has been noncomplia nt with atorvastat in, but agree to restart. Nocturia 152160608 R35.[address] Becker. Gout 92729360 M10.9 Need to avoid NSAIDs so will start allopurino l and titrate to try and get UA level <6.8. Supraventr icular tachycardia 7483108 I47.10 Needs referral to f/u with cardiology who he saw last year after ER visit for SVT. Administra tion of pneumococcal vaccine 85046587 Z23 Serrated p olyp of colon 957079829 K63.5 Due in 2024. Chronic ki dney disease stage 3A 160292028 N18.31 Likely secondary to DM/HTN and obstructiv e uropathy which are currently well controlled . Type 2 kevin betes mellitus without complication 955482110 E11.9 Complying with treatment and control is significan tly improved, but overdue for reassessme nt. Working with . [id number] Mario Obando MD Main Office [address] [address] 04/21/2024 10:20:40 04/21/2024 11:04:01 Pain in right foot 2373461958 30555 M79.671 and edema - suspicious for gout flare - see belowcheck xray to r/o hairline fx (but no h/o recent trauma to foot) & possible gouty changescon t crutches as dir/zbigniew. until pain level diminishes Gout 99193654 M10.9 see above - suspect gout flare, most likely d/t recent beer intakerec cont allopurino l as dir, but add pred pulserec low purine diet (stop beer)and will get rheum eval (gout has always bothered his big toe, now bothering whole foot) [id number] Zelalem Schneider MD Main Office [address] [place] [address] 06/18/2024 13:07:10 06/18/2024 14:24:01 Body mass index 30+ - obesity 820296641 E66.01 Z68.34 Recommend low calorie, low carb, eliminatio n of processed foods, and increased exercise.W ill refer to nutritioni st. Hypertensi ve renal disease 10203149 I12.9 Blood pressure above target. Recom increasing amlodipine 5 mg to 10 mg and continue lisinopril 40 and metoprolol . Continue low sodium diet . Chronic ki dney disease stage 3A 075859257 N18.31 F/u with renal. Continue acei. Consider SGLT-2 Jardiance 10 mg. Renal diso rder due to type 2 diabetes mellitus 319883448 E11.21 A1c above normal at today's visit, 7.3%. PT. is on max dose of Trulicity and on metfromin. I recommend switching to Mounjaro to enhance weight loss and to improve diabetic control. Start at 2.5 mg weekly for 2 weeks, then 5 mg weekly. Continue metformin. F/u 4 m. repeat bmp and lipid profile. Hypercholesterolemia 136 85939 E78.2 Continue atorvastat in , repeat fasting lipids before physical in August. [id number] Mario Obando MD Main Office [address] [place] [address] 08/19/2024 08:49:19 08/19/2024 09:47:42 Hypertensive renal disease 07364147 I12.9 Much better on recheck, pain and deconditio linwood certainly mitigating factors, will continue current regimen for now. Gout 38335064 M10.9 Need to avoid NSAIDs, and may be having an acute flare so he was advised to increase allopurino l to 200mg/day once knee pain resolves. Target UA level <6.8. Pain of le ft knee region 6395115139 73407 M25.562 ? gout but may be OA of soft tissue inflammati on. Will evaluate further if persistent /recurrent . Health Concerns Section Related Observation LastModified by Organization Detai ls LastModified Time None Recorded Concern Status LastModified by Organization Details LastModified Time None Recorded Advance Directives Directive Y: HCP/ -Ольга Payers Insurance Date Sequence Insurance Name Policy Number Policy Bliss Covered Member ID Bliss Member ID Guarantor Name 06/14/2017 1 [facility] (O) [id number] 23 Ольга A Pisklak [id number] Tameka Pisklak 10/12/2024 1 [facility] (O) [id number] 23 Ольга Pisklak [id number] Tameka Pisklak Notes Date Note Type Note Provider Name and Address Organization Details Recorded Time 02/21/2024 text/html Generic HPI TemplateReported bypatient.Notes:Here for physical, feels well. Seeing dentist and ophtho regularly. Mario Obando MD [address] [address], [place], [address], [facility] 02/21/2024 09:35:20 04/21/2024 text/html pain in right fo ot - pt thinks it is a gout flare-up rev chart - + h/o goutlast uric acid level 9.0 on 02.18.24, then started on allopurinol 100mg qd on 02.21.24 at his pt states his R foot bothered him last week, then got a little better - but acutely worse since last sunday - now ambulating c crutches to offload R footcannot take nsaids d/t h/o DM denies trauma to R footadmits to drinking beernever seen by rheum Ruddy Diggs PA-C [address] [address], [place], [address], [facility] [place] 04/21/2024 11:13:33 06/18/2024 text/html Diabetes F/URepo rted bypatient.Review finger sticks:post lunch: 135 Context:normal range of home blood sugars (in the low 100s); seeing eye doctor regularly; checking feet regularly; taking aspirin daily; not missing doses of medications; no side effects from medications Associated Symptoms:no dizziness; no sweats; no headaches; no confusion; no increased thirst; no increased appetite; no increased urination; no blurred vision; no numbness of feet; no calluses on feet;weight gain (2 lbs)Notes:HgA1c is 7.1% at his last appointment 6.3%. (06/2023) Meds: Trulicity 4.5 mg weekly, metformin 500 mg TID, Lantus was previously discontinue by pt. Tolerating medications well, reports no side effects. Exercising: states he exercises about once a day stationary biking for about 30 minsOpthamology: eye exam 2 weeks ago; normalSaw a home health travel ot - suggested to see a supervisor gelatin plant.Hypertensio n F/UReported bypatient.Associated Symptoms:no dizziness; no lightheadedness; no chest pain; no shortness of breath; no palpitations; no edema; no calf pain with exertion Lifestyle:limiting/jayjay iding salt;not exercising regularly Medications:no side effects from medication; checks blood pressure at home, range:Notes:blood pressure is elevated on both checks in office first measurement 148/77, retake 152/78. Meds: lisinopril 40 mg daily, metoprolol er 25 mg half tablet daily and amlodipine 5 mg. Pt. was seen by renal last year, (August 2023) does not have another follow up appointment. due to CKD stg 3A. He inconsistently takes blood pressure at home, not currently logging them. Pt. is not taking recommended chlorthalidone which was a replacement for HCTZ. CKD stg 3A w/o microalbuminuria. Seen now by renal. Yesenia Diggs PA-C [address] [address], [place], [address], [facility] 06/18/2024 14:56:27 08/19/2024 text/html Diabetes F/URepo rted bypatient.Review finger sticks:fastin Context:seeing eye doctor regularly;home blood sugar range high;not taking aspirin daily;missing doses of medication Associated Symptoms:no weight gain;weight loss (8 lbs)Notes:A1C down to 7.3 after working with Yesenia.Hyperlipidemi aReported bypatient.Type of hyperlipidemia:combine d Control:usually well controlled; at goal Current Therapy:currently taking: (atorvastatin 40mg); last cholesterol level: (97); last LDL level: (33); last triglyceride level: (85); last HDL level: (42) Compliance:exercises;n oncompliant;noncomplia nt with diet Complications:no coronary artery disease; no peripheral artery disease; no cardiovascular disease Risk Factors:diabetes;hyper tension;obesityHyperte nsion F/UReported bypatient.Associated Symptoms:no dizziness; no lightheadedness; no chest pain; no shortness of breath; no palpitations; no edema Lifestyle:high salt intake Medications:taking medications as directed; no side effects from medicationNotes:Report s compliance with lisinopril, amlodipine and BB. Following with cardiology and has extended nurse monitoring in place. No recent office notes. Mario Obando MD [address] [address], [place], [address], [facility] 08/19/2024 09:55:27
--- OUTSIDE RECORDS SUMMARY | 2024-11-26 10:24 | XMS_ITS | Patient Health Record ---
Author Organization [facility] Address [address] [place] [address] Care Team Providers Care Orthopedic Surgeon Name Role Phone Mario Govea MD Primary Care Provider Unavail able Ryan Tineo Unavailable [phone] Reason For Referral No Information Medications Medication SIG (Take, Route, Frequency, Duration) Notes Start Date End Date Status Pravastatin Sodium 40 MG 1 tablet Orally Once a day Active metFORMIN HCl 500 MG 1 tablet with meals Orally Twice a day Active Lisinopril 20 MG 1 tablet Orally Once a day Active zzzExtra Depth Orthopedic Shoes (1 Pair) with Customized Heat Molded Multidensity Innersoles (3 Pair) . . . Dx: NIDDM, Hammertoe Foot Deformity, Preulcerative Skin Lesion(s); Duration: . 03/08/2015 Active Social History Tobacco use other than smoking: Question Answer Notes Are you an other tobacco user? No Problems No Known Problems Plan Of Treatment Pending Test Test Name Order Date Hemoglobin A1c 03/08/2015 Insurance Providers Payer Name Payer Address Payer Phone Subscriber Number Group Number Insured Name Patient Relationship to Insured Coverage Start Date Coverage End Date [facility] [address] [place] [address] [id number] Lino Wang Spouse - patient is the spouse of the insured Medical (General) History Medical History History ICD Code Chicken pox type II diabetes Gout High blood pressure Joint implants/screws Cholesterol Surgical History Surgery Date(Month/Year) Heel/ankle surgery to repair Fx 2010
== END 2024-11-26 10:08 | disposition home or self-care (01) ==
LOC: HO.HKA 09:49
PROVIDERS: PCP Pediatrics; Visit Provider Internal Medicine Nephrology
DX: N18.31 Chronic kidney disease, stage 3a (principal); I10 Essential (primary) hypertension
CPT/HCPCS: 99214